=== PATIENT | female | born 1935 | race Hispanic/Latino ===

== ENCOUNTER 2019-08-28 13:14 | Inpatient (IN) | payer MEDICARE, MEDICAID, SELFPAY ==
[2019-08-31 13:44] VITALS: BMI 25.3
[2019-09-01] VITALS (17 sets, daily range): BP systolic 121–140; BP diastolic 55–81; PULSE 69–88; RESP 16–30; TEMP 36.4–36.8; O2SAT 92–100
[2019-09-01 04:56] LABS: Hematocrit 24.3 % (37.0-47.0); Hemoglobin 8.1 g/dL (12.0-15.0); Mean Corpuscular HGB Conc 33.3 g/dl (32-36); Mean Platelet Volume 11.9 fl (7.4-10.4); Platelet Count Result 155 k/mm3 (150-375); Red Blood Count 2.53 M/mm3 (4.2-5.4); Red Cell Distribution Width 13.1 % (11.5-14.5)
[2019-09-01] MEDS: ACETAMINOPHEN 325 MG TABLET 650 MG PO ×2 (08:20→19:37)
[2019-09-01] MEDS: ATORVASTATIN 20 MG TABLET PO (08:21)
[2019-09-01] MEDS: ASPIRIN 325 MG TABLET PO (08:21)
[2019-09-01] MEDS: PANTOPRAZOLE SODIUM IV 40 MG VIAL IV PUSH ×2 (08:22→20:43)
[2019-09-01] MEDS: INSULIN GLARGINE (*BKC) 100 UNITS/ML 15 UNITS SUB-Q (08:22)
[2019-09-01 08:30] LABS: Glucose Point of Care 129 (65-105)
--- NOTE | 2019-09-01 09:33 | PM.IMPN ---
Progress Note: A&P Assessment and Plan (1) Septic shock: Code(s): A41.9 - Sepsis, unspecified organism; R65.21 - Severe sepsis with septic shock Status: Acute Assessment and Plan: Patient with septic shock present on admission. Source most likely from UTI - no other clear etiology. Urine culture growing Enterobacter. Blood cultures showing no growth. Levophed has been weaned off. Blood pressure remaining stable. (2) Non-ST elevation [place] (NSTEMI): Code(s): I21.4 - Non-ST elevation (NSTEMI) myocardial infarction Status: Acute Assessment and Plan: Troponin has peaked at 28.7. Patient without complaints of chest pain. Echo showing EF of 60% and grade 2 diastolic dysfunction but no wall motion abnormalities. EKG showing ST-T wave changes in the lateral leads but improved from EKG on admission. Heparin drip stopped. Continue medical management with Plavix, aspirin and Lipitor. Appreciate cardiology input. Regarding the patient's shortness of breath, it is felt this is related to anxiety and not anginal equivalent. EKG performed during 1 of these events did not show any significant changes. Would continue to redirect patient and minimize lorazepam use for the patient's anxiety. (3) UTI (urinary tract infection), bacterial: Code(s): N39.0 - Urinary tract infection, site not specified; A49.9 - Bacterial infection, unspecified Status: Acute Assessment and Plan: Most likely etiology of her septic shock. Urine culture growing Enterobacter that is relatively pansensitive. No fevers. White count remaining normal. Continue Rocephin. (4) CAD (coronary artery disease): Code(s): I25.10 - Atherosclerotic heart disease of [place] coronary artery without angina pectoris Status: Acute Assessment and Plan: As above. Patient has a history of coronary disease with myocardial infarction requiring angioplasty and possible stent in the past. (5) Diabetes mellitus: Code(s): E11.9 - Type 2 diabetes mellitus without complications Status: Acute Assessment and Plan: A1c 7.6. Glucose reviewed on 09/01/19. Glucose stable. Continue to hold Lantus. Continue sliding scale protocol. (6) Anemia: Code(s): D64.9 - Anemia, unspecified Status: Acute Assessment and Plan: Hemoglobin low but stable in the 7-8 range. No obvious source of blood loss. Iron studies noted. Continue to monitor. (7) Anxiety: Code(s): F41.9 - Anxiety disorder, unspecified Status: Acute Assessment and Plan: Suspect patient with anxiety resulting in her SOB. Continue to redirect. Ativan available as needed. (8) Right shoulder pain: Code(s): M25.511 - Pain in right shoulder Status: Acute Assessment and Plan: No trauma or falls. No right upper quadrant pain to suggest referred pain from gallbladder. Imaging study showing no fracture. Continue to follow. Additional Plan Continue PT and OT. Increase activity level. Time Spent With Patient Time: Total time spent is greater than 50% in coordination of care (as documented) at patient's floor/unit and/or counseling patient: Time with patient: 25 - 35 minutes Subjective Interval history: 83yo female here for septic shock and NSTEMI. Patient still with right shoulder pain but can not tell me if it is better or worse since Rt IJ central line removed. Eating okay. No n/v. UOP 250ml per RN. No issues overnight per RN. Patient also denies any problems overnight. Feels SOB and panicky. Slept well last night. No CP. Does complain of bilateral hand numbness. Exam Narrative: Exam Narrative: Gen - NARD Chest - CTA bilat, nml RR CV - RRR S1/S2; Tele showing PVCs. Abd - soft, NT/ND, +BS Ext - no pedal edema Psych - mildly anxious but easily redirected. Skin - warm and dry Objective Data Vital Signs Vital Signs: Vital Signs - 24 hr 09/01/19 00:19 09/01/19 00:37 11
[2019-09-01 12:15] LABS: Glucose Point of Care 115 (65-105)
[2019-09-01 16:19] LABS: Glucose Point of Care 200 (65-105)
--- NOTE | 2019-09-01 18:05 | PM.PNCARD ---
Progress Note: A&P Assessment and Plan (1) Non-ST elevation [place] (NSTEMI): Code(s): I21.4 - Non-ST elevation (NSTEMI) myocardial infarction Status: Acute Assessment and Plan: Will repeat an EKG tomorrow. Significant anterolateral ST segment depressions however. Given the severity of her non-STEMI, it is reasonable to pursue coronary angiogram to define her coronary anatomy. Possibly Wednesday (2) UTI (urinary tract infection), bacterial: Code(s): N39.0 - Urinary tract infection, site not specified; A49.9 - Bacterial infection, unspecified Status: Acute Assessment and Plan: On antibiotics (3) CAD (coronary artery disease): Code(s): I25.10 - Atherosclerotic heart disease of [place] coronary artery without angina pectoris Status: Acute Assessment and Plan: Continue aspirin, Plavix, statin. Discontinue Levophed. Start low-dose metoprolol 12.5 milligrams p.o. b.i.d.. (4) Diabetes mellitus: Code(s): E11.9 - Type 2 diabetes mellitus without complications Status: Acute Time Spent With Patient Time: Total time spent is greater than 50% in coordination of care (as documented) at patient's floor/unit and/or counseling patient: Time with patient: 15 - 25 minutes Subjective Interval history: Reason for follow-up: Non-STEMI Subjective: She denies any chest pain or shortness of breath. she feels better. No swelling Review of Systems Review of Systems: All systems reviewed & are unremarkable except as noted in HPI and below Constitutional: Constitutional: Denies fatigue Eyes: Eyes: Denies blurry vision ENT: Denies tinnitus Cardiovascular: Cardiovascular: Denies chest pain at rest Respiratory: Respiratory: Denies cough Gastrointestinal: Gastrointestinal: Denies hematochezia Genitourinary: Genitourinary: Denies frequent urination Musculoskeletal: Musculoskeletal: Denies muscle weakness Integumentary/Breasts: Skin/Breast: Denies rash Neurologic: Denies syncope Psychiatric: Psychiatric: Denies depression Endocrine: Endocrine: Denies fatigue Hematologic/Lymphatic: Hematologic/Lymphatic: Denies lymphadenopathy Allergic/Immunologic: Allergic/Immunologic: Denies lip swelling Exam Const: General: no acute distress HENMT: General nose exam: nares normal Eyes: General: appearance normal, both eyes and all related structures Neck: Neck: supple Resp: Auscultation: clear to auscultation bilaterally Cardio: Rate: regular rate Rhythm: regular rhythm GI: Palpation (GI): Yes soft Skin: General skin exam: normal color Neuro: Speech: normal speech Extrem: General: no pedal edema Psych: Affect: normal affect Objective Data Vital Signs Vital Signs: Vital Signs - 24 hr 09/01/19 00:19 09/01/19 00:37 09/01/19 02:00 Temperature Pulse Rate 82 79 77 Respiratory Rate 16 19 Blood Pressure 121/55 L 121/55 L Pulse Oximetry 100 98 92 L 09/01/19 04:00 09/01/19 06:00 09/01/19 08:00 Temperature 36.8 C Pulse Rate 76 77 74 Respiratory Rate 17 23 H 29 H Blood Pressure 128/64 136/64 Pulse Oximetry 96 98 94 L 09/01/19 08:30 09/01/19 10:00 09/01/19 10:06 Temperature 36.8 C Pulse Rate 76 73 77 Respiratory Rate 28 H 30 H Blood Pressure 140/66 140/66 Pulse Oximetry 93 L 97 09/01/19 12:00 09/01/19 14:00 09/01/19 16:00 Temperature Pulse Rate 78 72 81 Respiratory Rate 26 H 26 H Blood Pressure 125/81 Pulse Oximetry 97 100 09/01/19 16:42 Temperature 36.4 C Pulse Rate 73 Respiratory Rate 24 H Blood Pressure 135/57 L Pulse Oximetry 100 Intake/Output Intake/Output: Intake & Output 08/29/19 08/30/19 08/31/19 09/01/19 23:59 23:59 23:59 23:59 Intake Total 440 Output Total 450 Balance -10 Meds/Results Medications: Active Medications Generic Name Dose Route Start Last Admin Trade Name Freq PRN Reason Stop Dose Admin Acetaminophen 650 mg 09/01/19 00:00 09/01/19 08:20 Tylenol Tab
[2019-09-01] MEDS: METOPROLOL TARTRATE 12.5 MG TABLET PO (20:43)
[2019-09-01 21:18] LABS: Glucose Point of Care 132 (65-105)
[2019-09-02] VITALS (14 sets, daily range): BP systolic 112–122; BP diastolic 41–60; PULSE 65–86; RESP 17–27; TEMP 36.8–37.1; O2SAT 93–100
[2019-09-02] MEDS: LORAZEPAM 0.5 MG TABLET PO ×2 (04:23→22:52)
[2019-09-02 04:27] LABS: Hematocrit 25.7 % (37.0-47.0); Hemoglobin 8.4 g/dL (12.0-15.0); Mean Corpuscular HGB Conc 32.7 g/dl (32-36); Mean Corpuscular Hemoglobin 31.7 pg (26-34); Mean Platelet Volume 11.5 fl (7.4-10.4); Platelet Count Result 182 k/mm3 (150-375); Red Blood Count 2.65 M/mm3 (4.2-5.4); White Blood Count 7.8 K/mm3 (4.5-10.0)
[2019-09-02 04:43] LABS: Blood Urea Nitrogen 12 mg/dL (7-17); Calcium 8.1 mg/dL (8.4-10.2); Carbon Dioxide 25 mmol/L (22-30); Chloride 104 mmol/L (98-107); Estimated CRCL calculation 49 ml/min; Estimated Glomerular Filt Rate > 60; Glucose 135 mg/dL (65-105); Magnesium 2.1 mg/dL (1.6-2.3); Potassium 3.9 mmol/L (3.4-5.0); Sodium 135 mmol/L (137-145)
--- NOTE | 2019-09-02 08:11 | ECG_ITS ---
Measurements Intervals [address] Rate: 72 P: 43 NM: 147 QRS: -1 QRSD: 109 T: 68 QT: 413 QTc: 455 Interpretive Statements SINUS RHYTHM ST-T WAVE ABNORMALITY IN ANTEROLAT/LAT LEADS- CONSIDER ISCHEMIA ABNORMAL ECG Electronically Signed On 09-02-2019 9:51:03 CDT by Jhoan Camarillo D.O.
--- NOTE | 2019-09-02 09:26 | PM.PNCARD ---
Progress Note: A&P Assessment and Plan (1) Non-ST elevation [place] (NSTEMI): Code(s): I21.4 - Non-ST elevation (NSTEMI) myocardial infarction Status: Acute Assessment and Plan: EKG today still shows Significant anterolateral ST segment depressions however. Given the severity of her non-STEMI, it is reasonable to pursue coronary angiogram to define her coronary anatomy. Possibly Wednesday Will increase her metoprolol up to 25 milligrams p.o. b.i.d. (2) UTI (urinary tract infection), bacterial: Code(s): N39.0 - Urinary tract infection, site not specified; A49.9 - Bacterial infection, unspecified Status: Acute Assessment and Plan: On antibiotics (3) CAD (coronary artery disease): Code(s): I25.10 - Atherosclerotic heart disease of [place] coronary artery without angina pectoris Status: Acute Assessment and Plan: Continue aspirin, Plavix, statin, and metoprolol. (4) Diabetes mellitus: Code(s): E11.9 - Type 2 diabetes mellitus without complications Status: Acute Time Spent With Patient Time: Total time spent is greater than 50% in coordination of care (as documented) at patient's floor/unit and/or counseling patient: Time with patient: 15 - 25 minutes Subjective Interval history: Reason for follow-up: Non-STEMI Subjective: She denies any chest pain. She did have some episodic shortness of breath overnight. she feels better. No swelling Review of Systems Review of Systems: All systems reviewed & are unremarkable except as noted in HPI and below Constitutional: Constitutional: Denies fatigue Eyes: Eyes: Denies blurry vision ENT: Denies lip swelling and Denies tinnitus Cardiovascular: Cardiovascular: Denies chest pain at rest and Denies syncope Respiratory: Respiratory: Denies cough Gastrointestinal: Gastrointestinal: Denies hematochezia Genitourinary: Genitourinary: Denies frequent urination Musculoskeletal: Musculoskeletal: Denies muscle weakness Integumentary/Breasts: Skin/Breast: Denies rash Neurologic: Denies syncope Psychiatric: Psychiatric: Denies depression Endocrine: Endocrine: Denies fatigue Hematologic/Lymphatic: Hematologic/Lymphatic: Denies lymphadenopathy Allergic/Immunologic: Allergic/Immunologic: Denies lip swelling Exam Const: General: no acute distress HENMT: General nose exam: nares normal Eyes: General: appearance normal, both eyes and all related structures Neck: Neck: supple Resp: Auscultation: clear to auscultation bilaterally Cardio: Rate: regular rate Rhythm: regular rhythm GI: Palpation (GI): Yes soft Skin: General skin exam: normal color Neuro: Speech: normal speech Extrem: General: no pedal edema Psych: Affect: normal affect Objective Data Vital Signs Vital Signs: Vital Signs - 24 hr 09/01/19 10:00 09/01/19 10:06 09/01/19 12:00 Temperature Pulse Rate 73 77 78 Respiratory Rate 30 H 26 H Blood Pressure 140/66 125/81 Pulse Oximetry 97 97 09/01/19 14:00 09/01/19 16:00 09/01/19 16:42 Temperature 36.4 C Pulse Rate 72 81 73 Respiratory Rate 26 H 24 H Blood Pressure 135/57 L Pulse Oximetry 100 100 09/01/19 18:00 09/01/19 20:00 09/01/19 20:43 Temperature 36.8 C Pulse Rate 74 75 79 Respiratory Rate 25 H Blood Pressure 135/57 L Pulse Oximetry 98 09/01/19 22:00 09/02/19 00:00 09/02/19 02:00 Temperature 36.8 C Pulse Rate 70 71 71 Respiratory Rate 19 Blood Pressure 121/55 L Pulse Oximetry 98 09/02/19 04:00 09/02/19 06:00 09/02/19 08:00 Temperature 36.8 C Pulse Rate 86 77 67 Respiratory Rate 27 H Blood Pressure 122/60 Pulse Oximetry 98 Intake/Output Intake/Output: Intake & Output 08/30/19 08/31/19 09/01/19 09/02/19 23:59 23:59 23:59 23:59 Intake Total 440 350 Output Total 450 450 Balance -10 -100 Meds/Results Medications: Active Medications Generic Name Dose Route Start Last Admin Trade Name Freq
[2019-09-02 09:31] LABS: Glucose Point of Care 133 (65-105)
[2019-09-02] MEDS: PANTOPRAZOLE SODIUM IV 40 MG VIAL IV PUSH (09:39)
[2019-09-02] MEDS: ASPIRIN 325 MG TABLET PO (09:39)
[2019-09-02] MEDS: ATORVASTATIN 20 MG TABLET PO (09:40)
[2019-09-02] MEDS: INSULIN GLARGINE (*BKC) 100 UNITS/ML 15 UNITS SUB-Q (09:44)
--- NOTE | 2019-09-02 11:14 | PM.IMPN ---
Progress Note: A&P Assessment and Plan (1) Septic shock: Code(s): A41.9 - Sepsis, unspecified organism; R65.21 - Severe sepsis with septic shock Status: Acute Assessment and Plan: Patient with septic shock present on admission. Source most likely from UTI - no other clear etiology. Urine culture growing Enterobacter. Blood cultures showing no growth as on 08/29/19. Was on Levophed that was weaned off. Blood pressure remaining stable off Levophed. (2) Non-ST elevation [place] (NSTEMI): Code(s): I21.4 - Non-ST elevation (NSTEMI) myocardial infarction Status: Acute Assessment and Plan: Troponin has peaked at 28.7. Patient without complaints of chest pain. Echo showing EF of 60% and grade 2 diastolic dysfunction but no wall motion abnormalities. EKG showing ST-T wave changes in the lateral leads but improved from EKG on admission. Heparin drip stopped. Continue medical management with Plavix, aspirin and Lipitor. Low-dose beta-robert started as well. Blood pressure tolerating. Discussed with Cardiology. Appreciate cardiology input. Regarding the patient's shortness of breath, it is felt this is related to anxiety and not anginal equivalent. EKG performed during 1 of these events did not show any significant changes. Cardiology recommended starting Lovenox full dose. [facility] planned for Wednesday. (3) UTI (urinary tract infection), bacterial: Code(s): N39.0 - Urinary tract infection, site not specified; A49.9 - Bacterial infection, unspecified Status: Acute Assessment and Plan: Most likely etiology of her septic shock. Urine culture growing Enterobacter that is relatively pansensitive. No fevers. White count remaining normal. Continue Rocephin (day 6 of antibiotics). (4) CAD (coronary artery disease): Code(s): I25.10 - Atherosclerotic heart disease of [place] coronary artery without angina pectoris Status: Acute Assessment and Plan: As above. Patient has a history of coronary disease with myocardial infarction requiring angioplasty and possible stent in the past. (5) Diabetes mellitus: Code(s): E11.9 - Type 2 diabetes mellitus without complications Status: Acute Assessment and Plan: A1c 7.6. Glucose reviewed on 09/02/19. Glucose stable. Continue Lantus. Continue sliding scale protocol. (6) Anemia: Code(s): D64.9 - Anemia, unspecified Status: Acute Assessment and Plan: Hemoglobin low but stable in the 7-8 range. No obvious source of blood loss. Iron studies noted - possibly iron deficiency and suppressed TIBC production. Continue to monitor. Add iron. Check soluble transferrin (7) Anxiety: Code(s): F41.9 - Anxiety disorder, unspecified Status: Acute Assessment and Plan: Suspect patient with anxiety resulting in her SOB. Continue to redirect. Ativan available as needed. Discussed risks/beneftits of Lexapro and patient agreeable. Will add. (8) Right shoulder pain: Code(s): M25.511 - Pain in right shoulder Status: Acute Assessment and Plan: No trauma or falls. No right upper quadrant pain to suggest referred pain from gallbladder. Imaging study showing no fracture. Pain better since central line out and patient able to get out of bed. Continue to follow. Additional Plan Continue PT and OT. Increase activity level. Time Spent With Patient Time with patient: 25 - 35 minutes Subjective Interval history: 83yo female here for septic shock and NSTEMI. Patient was up to the chair for about 3 hours yesterday. Right shoulder pain is much improved. She had episode of shortness of breath again last night treated with Ativan. Symptoms resolved and she was able to sleep. No chest pain. Patient eating normally. Exam Narrative: Exam Narrative: Gen - NARD lying almost flat in bed Chest - CTA bilat, nml RR CV - RRR S1/S2; Tele showing PVCs and trigeminy Abd - soft, NT/ND, +BS
[2019-09-02 12:19] LABS: Glucose Point of Care 207 (65-105)
[2019-09-02] MEDS: METOPROLOL TARTRATE 25 MG TABLET PO ×2 (13:41→20:07)
[2019-09-02] MEDS: ENOXAPARIN 60 MG/0.6 ML SYRINGE 55 MG SUB-Q (13:44)
[2019-09-02] MEDS: INSULIN ASPART (*BKC) 100 UNITS/ML SUB-Q (13:45)
[2019-09-02] MEDS: ESCITALOPRAM OXALATE 5 MG TABLET PO (14:12)
--- NOTE | 2019-09-02 16:01 | PCOTNOTE ---
The patient treatment was able to be completed on [09/02/2019]. Will plan to continue treatment per plan of care.
[2019-09-02 17:51] LABS: Glucose Point of Care 130 (65-105)
[2019-09-02] MEDS: PANTOPRAZOLE 40 MG TABLET PO (20:07)
[2019-09-02 20:53] LABS: Glucose Point of Care 122 (65-105)
[2019-09-02] MEDS: ACETAMINOPHEN 325 MG TABLET 650 MG PO (22:51)
[2019-09-03] VITALS (16 sets, daily range): BP systolic 106–131; BP diastolic 49–65; PULSE 62–85; RESP 17–24; TEMP 36.6–37.1; O2SAT 91–99
--- NOTE | 2019-09-03 01:02 | PC.NURSE ---
Daylight Savings Time For Daylight Savings Time Ending in the Fall - Clocks are moved back. For Daylight Savings Time Beginning in the Spring - Clocks are moved ahead. For [facility], the time of change occurs at 0200 hrs. Time is taken from the windows server specialist. This entry on the patient's chart recognizes the change in time reflected during documentation. Example: 2 entries for vital signs may be charted for 0200 hrs.
[2019-09-03] MEDS: ENOXAPARIN 60 MG/0.6 ML SYRINGE 55 MG SUB-Q ×2 (03:03→14:05)
[2019-09-03 04:42] LABS: Hematocrit 25.2 % (37.0-47.0); Hemoglobin 8.3 g/dL (12.0-15.0); Mean Corpuscular HGB Conc 32.9 g/dl (32-36); Mean Corpuscular Hemoglobin 32.2 pg (26-34); Mean Corpuscular Volume 97.7 fl (80-100); Mean Platelet Volume 11.4 fl (7.4-10.4); Platelet Count Result 220 k/mm3 (150-375); Red Blood Count 2.58 M/mm3 (4.2-5.4)
[2019-09-03 04:57] LABS: Alanine Aminotransferase 16 U/L (4-35); Albumin Level 2.9 g/dL (3.5-5.1); Alkaline Phosphatase 65 U/L (38-126); Aspartate Amino Transferase 27 U/L (14-36); Bilirubin,Total 0.3 mg/dL (0.2-1.3); Blood Urea Nitrogen 10 mg/dL (7-17); Calcium 8.1 mg/dL (8.4-10.2); Carbon Dioxide 25 mmol/L (22-30); Chloride 102 mmol/L (98-107); Estimated CRCL calculation 38 ml/min; Estimated Glomerular Filt Rate > 60; Glucose 105 mg/dL (65-105); Potassium 3.9 mmol/L (3.4-5.0); Sodium 135 mmol/L (137-145)
[2019-09-03 04:58] LABS: Magnesium 2.1 mg/dL (1.6-2.3)
[2019-09-03] MEDS: INSULIN GLARGINE (*BKC) 100 UNITS/ML 15 UNITS SUB-Q (08:28)
[2019-09-03] MEDS: METOPROLOL TARTRATE 25 MG TABLET PO ×2 (08:30→20:06)
[2019-09-03] MEDS: PANTOPRAZOLE 40 MG TABLET PO ×2 (08:31→20:07)
[2019-09-03] MEDS: ESCITALOPRAM OXALATE 5 MG TABLET PO (08:31)
[2019-09-03 09:05] LABS: Glucose Point of Care 105 (65-105)
--- NOTE | 2019-09-03 09:05 | PM.PNCARD ---
Progress Note: A&P Assessment and Plan (1) Non-ST elevation [place] (NSTEMI): Code(s): I21.4 - Non-ST elevation (NSTEMI) myocardial infarction Status: Acute Assessment and Plan: EKG still shows Significant anterolateral ST segment depressions however. Given the severity of her non-STEMI, it is reasonable to pursue coronary angiogram to define her coronary anatomy. Possibly Wednesday DC enoxaparin after this PM dose in preparation for possible cath tomorrow NPO after midnight (2) UTI (urinary tract infection), bacterial: Code(s): N39.0 - Urinary tract infection, site not specified; A49.9 - Bacterial infection, unspecified Status: Acute Assessment and Plan: On antibiotics (3) CAD (coronary artery disease): Code(s): I25.10 - Atherosclerotic heart disease of [place] coronary artery without angina pectoris Status: Acute Assessment and Plan: Continue aspirin, Plavix, statin, and metoprolol. (4) Diabetes mellitus: Code(s): E11.9 - Type 2 diabetes mellitus without complications Status: Acute Subjective Interval history: Reason for follow-up: Non-STEMI Subjective: follow-up note 09/03/19: She denies any chest pain. she feels better. No swelling Review of Systems Review of Systems: All systems reviewed & are unremarkable except as noted in HPI and below Constitutional: Constitutional: Denies fatigue Eyes: Eyes: Denies blurry vision ENT: Denies lip swelling and Denies tinnitus Cardiovascular: Cardiovascular: Denies chest pain at rest and Denies syncope Respiratory: Respiratory: Denies cough Gastrointestinal: Gastrointestinal: Denies hematochezia Genitourinary: Genitourinary: Denies frequent urination Musculoskeletal: Musculoskeletal: Denies muscle weakness Integumentary/Breasts: Skin/Breast: Denies rash Neurologic: Denies syncope Psychiatric: Psychiatric: Denies depression Endocrine: Endocrine: Denies fatigue Hematologic/Lymphatic: Hematologic/Lymphatic: Denies lymphadenopathy Allergic/Immunologic: Allergic/Immunologic: Denies lip swelling Exam Const: General: no acute distress HENMT: General nose exam: nares normal Eyes: General: appearance normal, both eyes and all related structures Neck: Neck: supple Resp: Auscultation: clear to auscultation bilaterally Cardio: Rate: regular rate Rhythm: regular rhythm GI: Palpation (GI): Yes soft Skin: General skin exam: normal color Neuro: Speech: normal speech Extrem: General: no pedal edema Psych: Affect: normal affect Objective Data Vital Signs Vital Signs: Vital Signs - 24 hr 09/02/19 12:00 09/02/19 13:41 09/02/19 14:00 Temperature 37.0 C Pulse Rate 74 72 74 Respiratory Rate 17 Blood Pressure 117/60 Pulse Oximetry 93 L 09/02/19 16:00 09/02/19 18:00 09/02/19 20:00 Temperature 37.1 C 36.9 C Pulse Rate 67 74 73 Respiratory Rate 23 H 24 H Blood Pressure 118/55 L 121/55 L Pulse Oximetry 100 98 09/02/19 20:07 09/02/19 22:00 09/03/19 00:00 Temperature 36.6 C Pulse Rate 68 65 70 Respiratory Rate 22 H Blood Pressure 109/54 L Pulse Oximetry 99 09/03/19 02:00 09/03/19 04:00 09/03/19 06:00 Temperature 36.8 C Pulse Rate 69 85 69 Respiratory Rate 21 H Blood Pressure 123/65 Pulse Oximetry 92 L 09/03/19 08:00 09/03/19 08:17 09/03/19 08:30 Temperature 36.8 C Pulse Rate 77 74 Respiratory Rate 24 H Blood Pressure 131/60 Pulse Oximetry 91 L 92 L Intake/Output Intake/Output: Intake & Output 08/31/19 09/01/19 09/02/19 09/03/19 23:59 23:59 23:59 22:59 Intake Total 440 1090 Output Total 450 1100 150 Balance -10 -10 -150 Meds/Results Medications: Active Medications Generic Name Dose Route Start Last Admin Trade Name Freq PRN Reason Stop Dose Admin Acetaminophen 650 mg 09/01/19 00:00 09/02/19 22:51 Tylenol Tablet PO 650 mg Q4H PRN Administration Mild Pain (1-3) or Fever Aspirin
[2019-09-03 11:59] LABS: Glucose Point of Care 143 (65-105)
[2019-09-03] MEDS: ASPIRIN 325 MG TABLET PO (14:04)
[2019-09-03] MEDS: ATORVASTATIN 20 MG TABLET PO (14:04)
--- NOTE | 2019-09-03 15:34 | PM.IMPN ---
Progress Note: A&P Assessment and Plan (1) Septic shock: Code(s): A41.9 - Sepsis, unspecified organism; R65.21 - Severe sepsis with septic shock Status: Acute Assessment and Plan: Patient with septic shock present on admission. Source most likely from UTI - no other clear etiology. Urine culture growing Enterobacter. Blood cultures negative. Was on Levophed that was weaned off. Blood pressure remaining stable off Levophed. (2) Non-ST elevation [place] (NSTEMI): Code(s): I21.4 - Non-ST elevation (NSTEMI) myocardial infarction Status: Acute Assessment and Plan: Troponin has peaked at 28.7. Patient without complaints of chest pain. Echo showing EF of 60% and grade 2 diastolic dysfunction but no wall motion abnormalities. EKG showing ST-T wave changes in the lateral leads but improved from EKG on admission. Heparin drip stopped and changed to full dose Lovenox. Continue medical management with Plavix, aspirin and Lipitor. Low-dose beta-robert started as well and blood pressure tolerating. Regarding the patient's shortness of breath, it is felt this is related to anxiety and not anginal equivalent. EKG performed during 1 of these events did not show any significant changes. [facility] planned for tomorrow. Lovenox on hold. Patient NPO after midnight. Appreciate cardiology input. (3) UTI (urinary tract infection), bacterial: Code(s): N39.0 - Urinary tract infection, site not specified; A49.9 - Bacterial infection, unspecified Status: Acute Assessment and Plan: Most likely etiology of her septic shock. Urine culture growing Enterobacter that is relatively pansensitive. No fevers. White count remaining normal. Continue Rocephin (day 7 of antibiotics). Switch to oral antibiotics. (4) CAD (coronary artery disease): Code(s): I25.10 - Atherosclerotic heart disease of [place] coronary artery without angina pectoris Status: Acute Assessment and Plan: As above. Patient has a history of coronary disease with myocardial infarction requiring angioplasty and stent(?) in the past. Continue medical management. Appreciate Cardiology input. (5) Diabetes mellitus: Code(s): E11.9 - Type 2 diabetes mellitus without complications Status: Acute Assessment and Plan: A1c 7.6. Glucose reviewed on 09/03/19. Glucose well controlled. Hold Lantus while NPO. Continue sliding scale protocol. (6) Anemia: Code(s): D64.9 - Anemia, unspecified Status: Acute Assessment and Plan: Hemoglobin low but stable in the 7-8 range. No obvious source of blood loss. Iron studies noted - possibly iron deficiency and suppressed TIBC production. Continue to monitor. Add iron. Continue Protonix to cover for stress gastritis. (7) Anxiety: Code(s): F41.9 - Anxiety disorder, unspecified Status: Acute Assessment and Plan: Suspect patient with anxiety resulting in her SOB. Continue to redirect. Ativan available as needed. Lexapro added. Symptoms appear to have improved. Continue to monitor. (8) Right shoulder pain: Code(s): M25.511 - Pain in right shoulder Status: Acute Assessment and Plan: No trauma or falls. No right upper quadrant pain to suggest referred pain from gallbladder. Imaging studies showing no fracture. Pain improved once the central line was out and patient able to get out of bed. Continue to follow. Additional Plan Continue PT and OT. Increase activity level. Time Spent With Patient Time with patient: 25 - 35 minutes Subjective Interval history: 83yo female here for septic shock and NSTEMI. No problems overnight. Patient has been weaned off oxygen. The anxiety symptoms are better overnight. She still has episodes of shortness of breath. Eating normally. No chest pain or abdominal pain. Walking to the bathroom. Was sitting up in a chair earlier. Denies having any further shoulder pain. Exam Narrati
[2019-09-03 17:36] LABS: Glucose Point of Care 116 (65-105)
--- NOTE | 2019-09-03 17:42 | PCOTNOTE ---
The patient treatment was unable to be completed on [09/03/2019]. Will plan to continue treatment per plan of care.
[2019-09-03] MEDS: FERROUS SULFATE 324 MG TABLET PO (20:07)
[2019-09-04] VITALS (35 sets, daily range): BP systolic 83–157; BP diastolic 47–70; PULSE 55–82; RESP 16–24; TEMP 36.1–36.9; O2SAT 91–100
[2019-09-04] MEDS: LORAZEPAM 0.5 MG TABLET PO ×2 (04:40→21:34)
[2019-09-04 08:14] LABS: Glucose Point of Care 107 (65-105)
[2019-09-04] MEDS: FERROUS SULFATE 324 MG TABLET PO (09:06)
[2019-09-04] MEDS: CEFDINIR 300 MG CAPSULE PO ×2 (09:07→21:34)
[2019-09-04] MEDS: ATORVASTATIN 20 MG TABLET PO (09:07)
[2019-09-04] MEDS: ESCITALOPRAM OXALATE 5 MG TABLET PO (09:07)
[2019-09-04] MEDS: ASPIRIN 325 MG TABLET PO (09:07)
[2019-09-04] MEDS: PANTOPRAZOLE 40 MG TABLET PO ×2 (09:08→21:34)
[2019-09-04] MEDS: METOPROLOL TARTRATE 25 MG TABLET PO ×2 (09:11→21:34)
--- NOTE | 2019-09-04 10:44 | WPDMODSED ---
Patient Data Diagnosis: Non ST-elevation [place] Present Complaint: No complaints today Procedure to be performed/Plan: Left heart catheterization, possible PCI Allergies Allergy/AdvReac Type Severity Reaction Status Date / Time No Known Allergies Allergy Unknown Verified 08/28/19 15:52 Home Medications Medication Instructions Recorded Confirmed Type acarbose [Precose] 25 mg PO DAILY 08/31/19 08/31/19 History aspirin 81 mg PO DAILY 08/31/19 08/31/19 History benzonatate 100 mg PO DAILY PRN 08/31/19 08/31/19 History cholecalciferol (vitamin D3) 1,000 unit PO DAILY 08/31/19 08/31/19 History enalapril maleate 20 mg PO BID 08/31/19 08/31/19 History metformin 1,000 mg PO BID 08/31/19 08/31/19 History pravastatin 40 mg PO DAILY 08/31/19 08/31/19 History Current Medications: Active Medications Acetaminophen (Tylenol Tablet) 650 mg PO Q4H PRN PRN Reason: Mild Pain (1-3) or Fever Last Admin: 09/02/19 22:51 Dose: 650 mg Documented by: Aspirin (Aspirin) 325 mg PO DAILY@0800 [facility] Last Admin: 09/04/19 09:07 Dose: 325 mg Documented by: Atorvastatin Calcium (Lipitor) 20 mg PO DAILY [facility] Last Admin: 09/04/19 09:07 Dose: 20 mg Documented by: Cefdinir (Omnicef) 300 mg PO Q12HR [facility] Last Admin: 09/04/19 09:07 Dose: 300 mg Documented by: Clopidogrel [facility] ([facility]ix) [facility] Escitalopram Oxalate (Lexapro) 5 mg PO QAM [facility] Last Admin: 09/04/19 09:07 Dose: 5 mg Documented by: Ferrous Sulfate (Ferrous Sulfate) 324 mg PO BIDWM [facility] Last Admin: 09/04/19 09:06 Dose: 324 mg Documented by: Insulin Aspart (Novolog) 3 - 6 units SUB-Q TIDWM [facility]; Protocol Last Admin: 09/04/19 09:11 Dose: Not Given Documented by: Insulin Glargine (Lantus) 15 units SUB-Q DAILY [facility] Last Admin: 09/03/19 08:28 Dose: 15 units Documented by: Lorazepam (Ativan) 0.5 mg PO Q6H PRN PRN Reason: Anxiety Last Admin: 09/04/19 04:40 Dose: 0.5 mg Documented by: Metoprolol Tartrate (Lopressor) 25 mg PO Q12HR [facility] Last Admin: 09/04/19 09:11 Dose: 25 mg Documented by: Pantoprazole Sodium (Protonix) 40 mg PO Q12HR [facility] Last Admin: 09/04/19 09:08 Dose: 40 mg Documented by: Sedation/Anesthesia: No previous sedation/anesthesia problems (including family history). Physical Exam Pre Procedural Exam: Normal: Appearance, Throat, Airway, Lungs, Heart Size, Heart Rate, Heart Rhythm, Neuro Exam and Extremities Hours since solid foods: 12 Hours since liquid intake: 12 Internal Medicine - PN: Obj Da Vital Signs Vital Signs: Vital Signs - 24 hr 09/03/19 12:00 09/03/19 14:00 09/03/19 16:00 Temperature 37.1 C Pulse Rate 69 75 78 Respiratory Rate 22 H 20 Blood Pressure 110/65 Pulse Oximetry 94 L 93 L 09/03/19 18:00 09/03/19 20:00 09/03/19 20:06 Temperature Pulse Rate 74 75 73 Respiratory Rate Blood Pressure Pulse Oximetry 96 09/03/19 20:28 09/03/19 22:00 09/04/19 00:00 Temperature 36.8 C Pulse Rate 70 71 81 Respiratory Rate 17 20 Blood Pressure 106/49 L Pulse Oximetry 96 95 09/04/19 02:00 09/04/19 04:00 09/04/19 06:00 Temperature 36.7 C Pulse Rate 69 77 67 Respiratory Rate 20 Blood Pressure 124/65 Pulse Oximetry 91 L 09/04/19 08:27 Temperature 36.9 C Pulse Rate Respiratory Rate Blood Pressure Pulse Oximetry Intake/Output Intake/Output: Intake & Output 09/02/19 09/03/19 09/03/19 09/04/19 00:59 00:59 23:59 23:59 Intake Total 200 Output Total 300 Balance -100 Meds/Results Medications: Active Medications Generic Name Dose Route Start Last Admin Trade Name Freq PRN Reason Stop Dose Admin Acetaminophen 650 mg 09/01/19 00:00 09/02/19 22:51 Tylenol Tablet PO 650 mg Q4H PRN Administration Mild Pain (1-3) or Fever Aspirin 325 mg 09/01/19 08:00 09/04/19 09:07 Aspirin PO 325 mg DAILY@0800 AN[facility] Administration Atorvastatin Calcium 20 mg 09/01/19 09:00 09/04/19 09:07 Lipitor PO 20 mg DAILY ANNE MARIE Administ
--- NOTE | 2019-09-04 10:47 | PCDIET ---
Patient screened for length of stay. Presently NPO for possible cardiac cath. Previously eating ~75% of meals on diabetic diet. No recommendations at this time. Will re-evaluate in 7 days or sooner, if indicated.
[2019-09-04 12:29] LABS: Glucose Point of Care 100 (65-105)
--- NOTE | 2019-09-04 13:04 | PM.IMPN ---
Progress Note: A&P Assessment and Plan (1) Septic shock: Code(s): A41.9 - Sepsis, unspecified organism; R65.21 - Severe sepsis with septic shock Status: Acute Assessment and Plan: Resolved. Patient with septic shock present on admission. Source most likely from UTI - no other clear etiology. Urine culture growing Enterobacter. Blood cultures negative. Was on Levophed that was weaned off. Blood pressure remaining stable off Levophed. (2) Non-ST elevation [place] (NSTEMI): Code(s): I21.4 - Non-ST elevation (NSTEMI) myocardial infarction Status: Acute Assessment and Plan: Troponin has peaked at 28.7. Patient without complaints of chest pain. Echo showing EF of 60% and grade 2 diastolic dysfunction but no wall motion abnormalities. EKG showing ST-T wave changes in the lateral leads but improved from EKG on admission. Heparin drip stopped and changed to full dose Lovenox. Continue medical management with Plavix, aspirin and Lipitor. Low-dose beta-robert started as well and blood pressure tolerating. Regarding the patient's shortness of breath, it is felt this is related to anxiety and not anginal equivalent. EKG performed during 1 of these events did not show any significant changes. [facility] planned for tomorrow. Lovenox on hold. Patient NPO currently awaiting the [facility]. Appreciate cardiology input. (3) UTI (urinary tract infection), bacterial: Code(s): N39.0 - Urinary tract infection, site not specified; A49.9 - Bacterial infection, unspecified Status: Acute Assessment and Plan: Most likely etiology of her septic shock. Urine culture growing Enterobacter that is relatively pansensitive. No fevers. White count remaining normal. Continue Cefdinir (day 8/10 of antibiotics). (4) CAD (coronary artery disease): Code(s): I25.10 - Atherosclerotic heart disease of [place] coronary artery without angina pectoris Status: Acute Assessment and Plan: As above. Patient has a history of coronary disease with myocardial infarction requiring angioplasty and stent(?) in the past. Continue medical management. Appreciate Cardiology input. (5) Diabetes mellitus: Code(s): E11.9 - Type 2 diabetes mellitus without complications Status: Acute Assessment and Plan: A1c 7.6. Glucose reviewed on 09/04/19. Glucose well controlled. Lantus on hold while NPO. Continue sliding scale protocol. (6) Anemia: Code(s): D64.9 - Anemia, unspecified Status: Acute Assessment and Plan: Hemoglobin low but stable in the 7-8 range. No obvious source of blood loss. Iron studies noted - possibly iron deficiency and suppressed TIBC production. Continue to monitor. Continue iron. Continue Protonix to cover for stress gastritis. (7) Anxiety: Code(s): F41.9 - Anxiety disorder, unspecified Status: Acute Assessment and Plan: Suspect patient with anxiety resulting in her SOB. Continue to redirect. Ativan available as needed. Lexapro added. Symptoms appear to have improved. Continue to monitor. Home with Lexapro and Xanax. (8) Right shoulder pain: Code(s): M25.511 - Pain in right shoulder Status: Acute Assessment and Plan: No trauma or falls. No right upper quadrant pain to suggest referred pain from gallbladder. Imaging studies showing no fracture. Pain improved once the central line was out and patient able to get out of bed. Continue to follow. Additional Plan Continue PT and OT. Increase activity level. Subjective Interval history: 83yo female here for septic shock and NSTEMI. No issues overnight. Walking in the room. SOB overnight related to anxiety better with the lorazepam. Exam Narrative: Exam Narrative: Gen - NARD sitting up in a chair Chest - CTA bilat, nml RR CV - RRR S1/S2; Tele showing one episode of bigeminy Abd - soft, NT/ND, +BS Ext - no pedal edema Psych - normal mood and affect. Calm and
--- NOTE | 2019-09-04 13:57 | PCOTNOTE ---
Patient attempted to be seen this date for skilled OT, however, patient unavailable - getting catheter at this time. Will attempt to see patient later in PM, and continue POC tomorrow, 09/05/19.
--- NOTE | 2019-09-04 14:54 | P.PCNCC_ITS ---
Cardiac Cath Procedure Note Date of procedure:: 09/04/19 Performing physician:: Vasquez Singh MD Indication:: Non ST-elevation [place] in setting of septic shock Brief clinical history:: 83-year-old female with no previous known history of coronary artery disease presented last week with findings suggestive of septic shock. Following this there has been a significant rise in cardiac biomarkers and precordial ST segment depression. Procedure Procedure performed:: Left heart catheterization with coronary angiography and left ventriculography via left groin Sedation/Medication given:: 50 milligrams fentanyl 2 milligrams Versed Access site:: Left femoral artery accessed after right femoral access failed Estimated blood loss:: 50 cubic centimeters Procedure note:: Patient was brought to the cardiac catheterization lab in the postabsorptive state the right and left femoral triangles were prepped in the usual fashion. Anesthesia was given in the right groin with 1% lidocaine infiltrated locally. There was no palpable arterial pulse in the right femoral artery and attempts to puncture the femoral artery were unsuccessful. There was a thready pulse in the left femoral artery and this was punctured successfully after several attempts. Left heart catheterization was then carried out using a 5 [place] angled pigtail catheter to document left-sided hemodynamics and inject the left ventriculogram in the POLLACK projection. A JR4 catheter was used to inject the right coronary artery and an FL4 catheter to inject the left coronary artery. Patient was then taken to the holding area for manual sheath removal. Procedure was well tolerated there was no evidence of a groin hematoma upon the recyclable materials collector Findings:: Central aortic pressure is 124/45. Left ventricle 124/0 end-diastolic pressure 18 there is no significant gradient across the aortic valve upon pullback. Left ventricular dilation with severe global hypokinesia global ejection fraction 25%. Moderate to severe mitral regurgitation. Severely calcified coronary arteries Long left main with moderate distal 50% left main stenosis. LAD is diffusely diseased with 70 to 80% diffuse mid lesion and heavy calcification throughout. Major diagonal has proximal 95% stenosis. Circumflex is a severely diseased artery with 99% ostial stenosis with [place] 2 flow into the major OM branch which is moderate size Right coronary artery is moderate caliber and dominant to the posterior circulation. There is proximal 80% long RCA stenosis distal 90% stenosis in the 3rd portion and 95 to 99% stenosis in the RPL branch which is moderate size Conclusion:: Severe three-vessel coronary artery disease as detailed above Heavily calcified coronary arteries Severe left ventricular dysfunction with significant mitral regurgitation Revascularization strategy would have to include CABG as likely the patient's best option albeit not low risk Operation would likely include mitral valve repair as well
--- NOTE | 2019-09-04 15:20 | PC.NURSE ---
pt transferred via bed to labels molder at 2169
--- NOTE | 2019-09-04 16:20 | SUR.PHASEI ---
1515 pt arrived to the [facility], 5 fr sheath secured to left groin-drsg c/d/i, vss, denies pain, educational interpreter at bedside talking with pt during recovery. 1531 5fr sheath removed using manual pressure per protocol by Ellis PLATA. 1601 hemostasis acheived sterile applied, family at bedside, discussed bedrest and activity intructions with pt and family, cont to closely monitor.
[2019-09-04 17:17] LABS: Glucose Point of Care 78 (65-105)
[2019-09-05] VITALS (30 sets, daily range): BP systolic 107–140; BP diastolic 44–67; PULSE 58–95; RESP 13–22; TEMP 36.6–36.9; O2SAT 89–96
--- NOTE | 2019-09-05 08:29 | PM.IMPN ---
Progress Note: A&P Assessment and Plan (1) Septic shock: Code(s): A41.9 - Sepsis, unspecified organism; R65.21 - Severe sepsis with septic shock Status: Acute Assessment and Plan: Now resolved. Most likely result of UTI. Blood pressure reviewed on 09/05/19 and stable off pressors. Urine culture with Enterobacter. Blood cultures negative. Now remains on cefdinir. Plan for transfer to tertiary center due to severe 3 vessel coronary disease. Telemetry reviewed on 09/05/19 with sinus rhythm. (2) Non-ST elevation CT (NSTEMI): Code(s): I21.4 - Non-ST elevation (NSTEMI) myocardial infarction Status: Acute Assessment and Plan: Appreciate help from cardiology. Troponin peaked at 28.7. Echocardiogram with EF 60% and grade 2 diastolic dysfunction but no wall motion abnormalities. Now S/P cardiac cath on 09/04/19 revealing severe 3 vessel disease. Per cardiology, plan for transfer to tertiary center for CABG and possible mitral valve repair. Off anticoagulant. Continue metoprolol, Plavix and atorvastatin. (3) CAD (coronary artery disease): Code(s): I25.10 - Atherosclerotic heart disease of [place] coronary artery without angina pectoris Status: Acute Assessment and Plan: Now S/P cardiac cath as noted above. Plan as noted above. (4) UTI (urinary tract infection), bacterial: Code(s): N39.0 - Urinary tract infection, site not specified; A49.9 - Bacterial infection, unspecified Status: Acute Assessment and Plan: Most likely etiology of her septic shock. Urine culture growing Enterobacter. Now on Day # 9 of 10 cefdinir. Continue cefdinir to completion. (5) Diabetes mellitus: Code(s): E11.9 - Type 2 diabetes mellitus without complications Status: Acute Assessment and Plan: HgbA1C 7.6. Glucose reviewed on 09/05/19. Lantus on hold since 09/03/19. Remains well controlled. Will continue to monitor. Sliding scale insulin available as needed. (6) Anemia: Code(s): D64.9 - Anemia, unspecified Status: Acute Assessment and Plan: Last Hgb 8.3 on 09/03/19 and remains stable. Iron studies noted - possibly iron deficiency and suppressed TIBC production. No obvious bleeding. Continue iron and Protonix. Monitor periodically. (7) Anxiety: Code(s): F41.9 - Anxiety disorder, unspecified Status: Acute Assessment and Plan: May be adding to shortness of breath. Will continue Lexapro. Has lorazepam available as needed. Will monitor. (8) Right shoulder pain: Code(s): M25.511 - Pain in right shoulder Status: Acute Assessment and Plan: No complaint today. Imaging negative. Continue PT/OT. (9) DVT prophylaxis: Code(s): Z29.9 - Encounter for prophylactic measures, unspecified Status: Acute Assessment and Plan: Was on heparin drip/Lovenox but anticoagulation stopped with cardiac catheterization. Will not resume with need for transfer to tertiary center. PT/OT to help with ambulation. Subjective Interval history: Date of Service: 09/05/2019. Admitted for septic shock, NSTEMI. Awake. Family present and act as order dispatcher chief as patient only speaks [place]. Complains of shortness of breath. Denies chest pain. No headache. No abdominal pain. Review of Systems Constitutional: Constitutional: Denies fever(s) Cardiovascular: Cardiovascular: Denies chest pain and Denies palpitations Respiratory: Respiratory: Reports dyspnea Gastrointestinal: Gastrointestinal: Denies abdominal pain and Denies nausea Integumentary/Breasts: Skin/Breast: Denies rash Neurologic: Denies confusion and Denies headache(s) Psychiatric: Psychiatric: Denies confusion Exam Const: General: No no acute distress HENMT: Mouth: No moist mucous membranes Neck: Neck: supple Resp: Auscultation: clear to auscultation bilaterally and diminished lung sounds Cardio: Rate: regular rate Rhythm: regular rhythm GI: Palpation (GI): Yes soft and
[2019-09-05] MEDS: ASPIRIN 325 MG TABLET PO (09:06)
[2019-09-05] MEDS: FERROUS SULFATE 324 MG TABLET PO ×2 (09:06→18:39)
[2019-09-05] MEDS: ATORVASTATIN 20 MG TABLET PO (09:06)
[2019-09-05] MEDS: CEFDINIR 300 MG CAPSULE PO ×2 (09:06→20:30)
[2019-09-05] MEDS: METOPROLOL TARTRATE 25 MG TABLET PO ×2 (09:06→20:29)
[2019-09-05] MEDS: ESCITALOPRAM OXALATE 5 MG TABLET PO (09:06)
[2019-09-05] MEDS: PANTOPRAZOLE 40 MG TABLET PO ×2 (09:06→20:30)
[2019-09-05 09:13] LABS: Glucose Point of Care 105 (65-105)
[2019-09-05 09:44] LABS: Blood Urea Nitrogen 11 mg/dL (7-17); Calcium 8.6 mg/dL (8.4-10.2); Carbon Dioxide 21 mmol/L (22-30); Chloride 105 mmol/L (98-107); Estimated CRCL calculation 52 ml/min; Estimated Glomerular Filt Rate > 60; Glucose 109 mg/dL (65-105); Magnesium 1.9 mg/dL (1.6-2.3); Potassium 4.2 mmol/L (3.4-5.0); Sodium 135 mmol/L (137-145)
--- NOTE | 2019-09-05 12:40 | PM.PNCARD ---
Progress Note: A&P Assessment and Plan (1) Non-ST elevation [place] (NSTEMI): Code(s): I21.4 - Non-ST elevation (NSTEMI) myocardial infarction Status: Acute Assessment and Plan: Cardiac catheterization by Dr. Singh on September 04, 2019 revealed significant coronary artery disease, severe LV dysfunction and severe MR. Plan is to transfer to [facility] for further management. Surgical revascularization was recommended by Dr. Singh. Spoke with Dr. Mendes at 12:43 p.m. and he has accepted her for transfer. (2) UTI (urinary tract infection), bacterial: Code(s): N39.0 - Urinary tract infection, site not specified; A49.9 - Bacterial infection, unspecified Status: Acute Assessment and Plan: On antibiotics (3) CAD (coronary artery disease): Code(s): I25.10 - Atherosclerotic heart disease of [place] coronary artery without angina pectoris Status: Acute Assessment and Plan: Continue aspirin, statin, and metoprolol. Will stop clopidogrel on transfer in anticipation of bypass surgery. (4) Diabetes mellitus: Code(s): E11.9 - Type 2 diabetes mellitus without complications Status: Acute Assessment and Plan: Management per hospitalist team Time Spent With Patient Time: Plan discussed with Dr Randell Watson 09/05/2019 Time with patient: less than 15 minutes Subjective Interval history: Reason for follow-up: Non-STEMI. Multivessel coronary artery disease, LV dysfunction and severe MR found on cardiac catheterization September 04/2019. Subjective: follow-up note 09/05/19: Son at bedside. Denied chest discomfort or lightheadedness. Occasional episodes of shortness of breath. Review of Systems Review of Systems: All systems reviewed & are unremarkable except as noted in HPI and below Cardiovascular: Cardiovascular: Reports no additional cardiovascular complaints, Denies chest pain at rest and Denies syncope Respiratory: Respiratory: Reports dyspnea (With feelings of anxiety) and Reports dyspnea on exertion Gastrointestinal: Gastrointestinal: Reports no additional gastrointestinal complaints Musculoskeletal: Musculoskeletal: Reports no additional musculoskeletal complaints and Denies muscle weakness Neurologic: Denies syncope Psychiatric: Psychiatric: Reports anxiety Endocrine: Endocrine: Denies fatigue Hematologic/Lymphatic: Hematologic/Lymphatic: Denies lymphadenopathy Allergic/Immunologic: Allergic/Immunologic: Denies lip swelling Exam Const: General: comfortable and no acute distress HENMT: General nose exam: nares normal Eyes: General: appearance normal, both eyes and all related structures Neck: Neck: supple Resp: Auscultation: clear to auscultation bilaterally Cardio: Rate: regular rate Rhythm: regular rhythm GI: Palpation (GI): Yes soft and No tender Auscultation: normal bowel sounds Skin: General skin exam: normal color Neuro: Speech: normal speech Extrem: General: no pedal edema Other: Right groin site without swelling or bleeding. No femoral bruit. Distal pulses intact. Psych: Affect: normal affect Objective Data Vital Signs Vital Signs: Vital Signs - 24 hr 09/04/19 12:46 09/04/19 15:15 09/04/19 15:30 Temperature 36.6 C 36.1 C L Pulse Rate 66 71 55 L Respiratory Rate 17 16 16 Blood Pressure 104/62 120/53 L 157/70 H Pulse Oximetry 100 100 100 09/04/19 15:45 09/04/19 16:00 09/04/19 16:15 Temperature Pulse Rate 67 69 71 Respiratory Rate 23 H 21 H 18 Blood Pressure 120/59 L 134/53 L 134/62 Pulse Oximetry 100 100 99 09/04/19 16:30 09/04/19 16:45 09/04/19 17:05 Temperature Pulse Rate 68 72 76 Respiratory Rate 17 16 16 Blood Pressure 135/56 L 140/65 Pulse Oximetry 100 98 98 09/04/19 17:32 09/04/19 18:00 09/04/19 19:00 Temperature 36.2 C L Pulse Rate 74 72 76 Respiratory Rate 19 17 20 Blood Pressure 104/62 124/68 Pulse Oximetry 100 100 09/04/19 19:15 09/04/19 19:30 09/04
[2019-09-05 13:24] LABS: IFOB Positive Control Positive; Immunochemical Fecal Occult Bl Negative (N)
--- NOTE | 2019-09-05 14:02 | PM.TDS ---
Transfer Discharge Sum: Prov Provider Date of admission: 08/28/19 13:14 Primary care physician: VEE,ELÍAS Huerta Admitting clinician: Vinnie Duenas MD Consults: 08/28/19 13:17 Consult to Physician Routine Comment: Consulting Provider: Johann Dodson Reason for consultation: sepsis Has provider been notified: Yes 08/28/19 14:35 Consult to Physician Routine Comment: Consulting Provider: Susan Mejias Reason for consultation: nstemi/ trop over 5 Has provider been notified: Yes DS: Diagnosis Admitting Diagnosis Admitting Diagnosis: Sepsis, unspecified organism Discharge Diagnosis (1) Non-ST elevation [place] (NSTEMI): Code(s): I21.4 - Non-ST elevation (NSTEMI) myocardial infarction Status: Acute (2) CAD (coronary artery disease): Code(s): I25.10 - Atherosclerotic heart disease of [place] coronary artery without angina pectoris Status: Acute (3) Anemia: Code(s): D64.9 - Anemia, unspecified Status: Acute (4) Septic shock: Code(s): A41.9 - Sepsis, unspecified organism; R65.21 - Severe sepsis with septic shock Status: Acute (5) UTI (urinary tract infection), bacterial: Code(s): N39.0 - Urinary tract infection, site not specified; A49.9 - Bacterial infection, unspecified Status: Acute Transfer Discharge Sum: Med Medications Active and Home Medications: Home Medications acarbose [Precose] 25 mg PO DAILY 08/31/19 [History Confirmed 08/31/19] aspirin 81 mg PO DAILY 08/31/19 [History Confirmed 08/31/19] benzonatate 100 mg PO DAILY PRN 08/31/19 [History Confirmed 08/31/19] cholecalciferol (vitamin D3) 1,000 unit PO DAILY 08/31/19 [History Confirmed 08/31/19] enalapril maleate 20 mg PO BID 08/31/19 [History Confirmed 08/31/19] metformin 1,000 mg PO BID 08/31/19 [History Confirmed 08/31/19] pravastatin 40 mg PO DAILY 08/31/19 [History Confirmed 08/31/19] Active Medications Acetaminophen (Tylenol Tablet) 650 mg PO Q4H PRN PRN Reason: Mild Pain (1-3) or Fever Last Admin: 09/02/19 22:51 Dose: 650 mg Documented by: Aspirin (Aspirin) 325 mg PO DAILY@0800 [facility] Last Admin: 09/05/19 09:06 Dose: 325 mg Documented by: Atorvastatin Calcium (Lipitor) 20 mg PO DAILY [facility] Last Admin: 09/05/19 09:06 Dose: 20 mg Documented by: Cefdinir (Omnicef) 300 mg PO Q12HR [facility] Last Admin: 09/05/19 09:06 Dose: 300 mg Documented by: Clopidogrel Bisulfate (Plavix) 75 mg PO QAM [facility] Escitalopram Oxalate (Lexapro) 5 mg PO QAM [facility] Last Admin: 09/05/19 09:06 Dose: 5 mg Documented by: Ferrous Sulfate (Ferrous Sulfate) 324 mg PO BIDWM [facility] Last Admin: 09/05/19 09:06 Dose: 324 mg Documented by: Insulin Aspart (Novolog) 3 - 6 units SUB-Q TIDWM [facility]; Protocol Last Admin: 09/05/19 09:10 Dose: Not Given Documented by: Insulin Glargine (Lantus) 15 units SUB-Q DAILY [facility] Last Admin: 09/03/19 08:28 Dose: 15 units Documented by: Lorazepam (Ativan) 0.5 mg PO Q6H PRN PRN Reason: Anxiety Last Admin: 09/04/19 21:34 Dose: 0.5 mg Documented by: Metoprolol Tartrate (Lopressor) 25 mg PO Q12HR [facility] Last Admin: 09/05/19 09:06 Dose: 25 mg Documented by: Pantoprazole Sodium (Protonix) 40 mg PO Q12HR [facility] Last Admin: 09/05/19 09:06 Dose: 40 mg Documented by: Transfer Discharge Sum: Hosp Hospital Course Hospital course: Poly Higgins is a 83 year old female Time Spent with Patient Time attestation: Total time spent providing and/or coordinating transfer services: DS: Data Data Completed and Pending Labs on day of discharge: Labs from last 24 hours 09/05/19 09/05/19 09/05/19 12:48 09:24 09:09 Sodium 135 L Potassium 4.2 Chloride 105 Carbon Dioxide 21 L BUN 11 Creatinine 0.50 L Estim Creat Clear Calc 52 Estimated GFR > 60 Glucose 109 H POC Capillary Glucose 105 Calcium 8.6 Magnesium 1.9 Stl Occult Blood (IFOB) Negative 09/04/19 17:15 Sodium Potassium Chloride C
[2019-09-05 14:23] LABS: Glucose Point of Care 147 (65-105)
--- NOTE | 2019-09-05 15:35 | PM.TDS ---
Transfer Discharge Sum: Prov Provider Date of admission: 08/28/19 13:14 Primary care physician: VEE,ELÍAS Huerta Admitting clinician: Vinnie Duenas MD Consults: 08/28/19 13:17 Consult to Physician Routine Comment: Consulting Provider: Johann Dodson Reason for consultation: sepsis Has provider been notified: Yes 08/28/19 14:35 Consult to Physician Routine Comment: Consulting Provider: Susan Mejias Reason for consultation: nstemi/ trop over 5 Has provider been notified: Yes DS: Diagnosis Admitting Diagnosis Admitting Diagnosis: Sepsis, unspecified organism Discharge Diagnosis (1) Septic shock: Code(s): A41.9 - Sepsis, unspecified organism; R65.21 - Severe sepsis with septic shock Status: Acute (2) Non-ST elevation [place] (NSTEMI): Code(s): I21.4 - Non-ST elevation (NSTEMI) myocardial infarction Status: Acute (3) CAD (coronary artery disease): Code(s): I25.10 - Atherosclerotic heart disease of [place] coronary artery without angina pectoris Status: Acute (4) UTI (urinary tract infection), bacterial: Code(s): N39.0 - Urinary tract infection, site not specified; A49.9 - Bacterial infection, unspecified Status: Acute (5) Diabetes mellitus: Code(s): E11.9 - Type 2 diabetes mellitus without complications Status: Acute (6) Anemia: Code(s): D64.9 - Anemia, unspecified Status: Acute (7) Anxiety: Code(s): F41.9 - Anxiety disorder, unspecified Status: Acute (8) Right shoulder pain: Code(s): M25.511 - Pain in right shoulder Status: Acute Transfer Discharge Sum: Med Medications Active and Home Medications: Home Medications acarbose [Precose] 25 mg PO DAILY 08/31/19 [History Confirmed 08/31/19] aspirin 81 mg PO DAILY 08/31/19 [History Confirmed 08/31/19] benzonatate 100 mg PO DAILY PRN 08/31/19 [History Confirmed 08/31/19] cholecalciferol (vitamin D3) 1,000 unit PO DAILY 08/31/19 [History Confirmed 08/31/19] enalapril maleate 20 mg PO BID 08/31/19 [History Confirmed 08/31/19] metformin 1,000 mg PO BID 08/31/19 [History Confirmed 08/31/19] pravastatin 40 mg PO DAILY 08/31/19 [History Confirmed 08/31/19] Active Medications Acetaminophen (Tylenol Tablet) 650 mg PO Q4H PRN PRN Reason: Mild Pain (1-3) or Fever Last Admin: 09/02/19 22:51 Dose: 650 mg Documented by: Aspirin (Aspirin) 325 mg PO DAILY@0800 [facility] Last Admin: 09/05/19 09:06 Dose: 325 mg Documented by: Atorvastatin Calcium (Lipitor) 20 mg PO DAILY [facility] Last Admin: 09/05/19 09:06 Dose: 20 mg Documented by: Cefdinir (Omnicef) 300 mg PO Q12HR [facility] Last Admin: 09/05/19 09:06 Dose: 300 mg Documented by: Clopidogrel Bisulfate (Plavix) 75 mg PO QAM [facility] Escitalopram Oxalate (Lexapro) 5 mg PO QAM [facility] Last Admin: 09/05/19 09:06 Dose: 5 mg Documented by: Ferrous Sulfate (Ferrous Sulfate) 324 mg PO BIDWM [facility] Last Admin: 09/05/19 09:06 Dose: 324 mg Documented by: Insulin Aspart (Novolog) 3 - 6 units SUB-Q TIDWM [facility]; Protocol Last Admin: 09/05/19 14:23 Dose: Not Given Documented by: Insulin Glargine (Lantus) 15 units SUB-Q DAILY [facility] Last Admin: 09/03/19 08:28 Dose: 15 units Documented by: Lorazepam (Ativan) 0.5 mg PO Q6H PRN PRN Reason: Anxiety Last Admin: 09/04/19 21:34 Dose: 0.5 mg Documented by: Metoprolol Tartrate (Lopressor) 25 mg PO Q12HR [facility] Last Admin: 09/05/19 09:06 Dose: 25 mg Documented by: Pantoprazole Sodium (Protonix) 40 mg PO Q12HR [facility] Last Admin: 09/05/19 09:06 Dose: 40 mg Documented by: Transfer Discharge Sum: Hosp Hospital Course Hospital course: Date of Service of Transfer: September 06, 2019. Reason for Hospitalization: dysuria, fever, chills, and shaking Poly Higgins is a 83 year old female who initially presented to the emergency room with complaint of dysuria followed by fever, chills and shaking. Family provided information and she is Irish speaking. I
[2019-09-05 18:41] LABS: Glucose Point of Care 174 (65-105)
[2019-09-05 20:22] LABS: Glucose Point of Care 148 (65-105)
[2019-09-05] MEDS: ACETAMINOPHEN 325 MG TABLET 650 MG PO (20:29)
[2019-09-05] MEDS: LORAZEPAM 0.5 MG TABLET PO (22:31)
[2019-09-06] VITALS (8 sets, daily range): BP systolic 117–160; BP diastolic 51–89; PULSE 67–92; RESP 18–23; TEMP 36.3–37.2; O2SAT 94–100
--- NOTE | 2019-09-06 09:01 | PM.IMPN ---
Progress Note: A&P Assessment and Plan (1) Septic shock: Code(s): A41.9 - Sepsis, unspecified organism; R65.21 - Severe sepsis with septic shock Status: Acute Assessment and Plan: Now resolved. Most likely result of UTI. Blood pressure reviewed on 09/06/19. Blood pressure remains stable off pressors. Urine culture with Enterobacter. Blood cultures remain negative. Will continue cefdinir. Telemetry reviewed on 09/06/19 with sinus rhythm. [facility] been accepted to [facility] due to severe 3 vessel coronary disease. Await available bed at [facility] for transfer. Will continue to monitor. (2) Non-ST elevation [place] (NSTEMI): Code(s): I21.4 - Non-ST elevation (NSTEMI) myocardial infarction Status: Acute Assessment and Plan: Appreciate help from cardiology. Troponin peaked at 28.7. Echocardiogram with EF 60% and grade 2 diastolic dysfunction but no wall motion abnormalities. Now S/P cardiac cath on 09/04/19 revealing severe 3 vessel disease. Plan for transfer to tertiary center for CABG and probable mitral valve repair with severe MR found on cardiac cath. Off anticoagulant with anticipated impending procedure. Continue metoprolol, Plavix and atorvastatin. (3) CAD (coronary artery disease): Code(s): I25.10 - Atherosclerotic heart disease of [place] coronary artery without angina pectoris Status: Acute Assessment and Plan: Now S/P cardiac cath as noted above. Plan as noted above. (4) UTI (urinary tract infection), bacterial: Code(s): N39.0 - Urinary tract infection, site not specified; A49.9 - Bacterial infection, unspecified Status: Acute Assessment and Plan: Most likely etiology of her septic shock. Urine culture growing Enterobacter. Now on Day # 10 of 10 antibiotics and currently on cefdinir. Discontinue cefdinir after today. (5) Diabetes mellitus: Code(s): E11.9 - Type 2 diabetes mellitus without complications Status: Acute Assessment and Plan: HgbA1C 7.6. Glucose reviewed on 09/06/19. Lantus on hold since 09/03/19. Remains well controlled with no regular medication. Will continue to monitor. Sliding scale insulin available as needed. (6) Anemia: Code(s): D64.9 - Anemia, unspecified Status: Acute Assessment and Plan: Last Hgb 8.3 on 09/03/19 and remains stable. Iron studies noted - possibly iron deficiency and suppressed TIBC production. No obvious bleeding. Continue iron and Protonix. Monitor periodically. (7) Anxiety: Code(s): F41.9 - Anxiety disorder, unspecified Status: Acute Assessment and Plan: May be adding to shortness of breath. Stable at present time. Will continue Lexapro. Has lorazepam available as needed. Will monitor. (8) Right shoulder pain: Code(s): M25.511 - Pain in right shoulder Status: Acute Assessment and Plan: No further complaint. Imaging negative. Continue PT/OT. (9) DVT prophylaxis: Code(s): Z29.9 - Encounter for prophylactic measures, unspecified Status: Acute Assessment and Plan: Was on heparin drip/Lovenox but anticoagulation stopped with cardiac catheterization. Will not resume with need for transfer to tertiary center. PT/OT to help with ambulation. Time Spent With Patient Time with patient: 15 - 25 minutes Subjective Interval history: Date of Service: 09/06/2019. Admitted with septic shock, NSTEMI. Sitting in chair. Family present and acting as trailer sections assembler as patient only speak Icelandic. Still has shortness of breath. Also complains of cough with phlegm. No chest pain. No headache. No abdominal pain. Review of Systems Constitutional: Constitutional: Denies fever(s) Cardiovascular: Cardiovascular: Denies chest pain and Denies palpitations Respiratory: Respiratory: Reports cough and Reports dyspnea Gastrointestinal: Gastrointestinal: Denies abdominal pain, Denies nausea and Denies vomiting Genitourinary: Genitourinary: Reports no additional fema
[2019-09-06 09:59] LABS: Glucose Point of Care 161 (65-105)
[2019-09-06] MEDS: METOPROLOL TARTRATE 25 MG TABLET PO (10:21)
[2019-09-06] MEDS: CEFDINIR 300 MG CAPSULE PO (10:21)
[2019-09-06] MEDS: FERROUS SULFATE 324 MG TABLET PO (10:21)
[2019-09-06] MEDS: ATORVASTATIN 20 MG TABLET PO (10:21)
[2019-09-06] MEDS: ASPIRIN 325 MG TABLET PO (10:21)
[2019-09-06] MEDS: PANTOPRAZOLE 40 MG TABLET PO (10:22)
[2019-09-06 12:59] LABS: Glucose Point of Care 208 (65-105)
[2019-09-07 18:05] LABS: Soluble Transferrin Receptor 0.71 mg/L (0.76-1.76)
== END 2019-09-06 14:50 | disposition short-term general hospital (02) | DRG 871 ==
PROVIDERS: Internal Medicine; Specialist; Admitting Provider Family Medicine; Emergency Provider Family Medicine; PCP Registered Nurse; Visit Provider Hospitalist
PROC: 4A023N7 Measurement of Cardiac Sampling and Pressure, Left Heart, Percutaneous Approach (ICD-10-PCS; CPT 93452; principal; 2019-09-04 14:30)
DX: A41.9 Sepsis, unspecified organism (principal); R65.21 Severe sepsis with septic shock; I21.4 Non-ST elevation (NSTEMI) myocardial infarction; N39.0 Urinary tract infection, site not specified; I34.0 Nonrheumatic mitral (valve) insufficiency; I25.10 Atherosclerotic heart disease of native coronary artery without angina pectoris; E11.9 Type 2 diabetes mellitus without complications; I10 Essential (primary) hypertension; E78.5 Hyperlipidemia, unspecified; M25.511 Pain in right shoulder; F41.9 Anxiety disorder, unspecified; D50.9 Iron deficiency anemia, unspecified; Z98.61 Coronary angioplasty status; M19.90 Unspecified osteoarthritis, unspecified site; Z79.82 Long term (current) use of aspirin; I25.2 Old myocardial infarction
CPT/HCPCS: 36415; 36556; 36600; 51702; 70450; 71045; 72040; 73030; 74176; 76705; 80048; 80053; 80061; 81001; 82274; 82375; 82607; 82728; 82746; 82805; 82962; 83036; 83050; 83540; 83550; 83605; 83735; 83880; 84238; 84484; 85014; 85018; 85025; 85027; 85610; 85730; 87040; 87077; 87081; 87086; 87088; 87186; 93005; 93306; 93458; 96361; 96365; 96375; 97110; 97116; 97161; 97165; 97530; 97535; 99291; A9270; C1751; C1887; C1894; C9113; J0131; J0692; J0696; J1644; J1650; J1815; J1940; J2250; J2543; J3010; J3475; J7030; J7040

== ENCOUNTER 2020-08-13 11:41 | Outpatient (RCR) | payer MEDICAID, SELFPAY | END 2020-08-13 23:59 | disposition home or self-care (01) | LOC: ANHAUDIO 11:41 | PROVIDERS: PCP Registered Nurse; Visit Provider Registered Nurse | DX: Z46.1 Encounter for fitting and adjustment of hearing aid (principal) | CPT/HCPCS: 99199 ==

== ENCOUNTER 2020-08-22 14:02 | Emergency (ER) | payer MEDICARE, MEDICAID, SELFPAY ==
[2020-08-22 14:21] VITALS: BP 147/61; PULSE 76; RESP 18; TEMP 36.5; O2SAT 97
[2020-08-22 14:25] VITALS: BP 147/61; PULSE 76; RESP 18; TEMP 36.5; O2SAT 97
--- NOTE | 2020-08-22 14:51 | ED.EAR ---
HPI - Ear Problem General Chief complaint: Ear Stated complaint: Blood in Ear Time Seen by Provider: 08/22/20 14:43 Source: patient and RN notes reviewed Mode of arrival: ambulatory History of Present Illness HPI Narrative: Patient presents today complaining of left ear pain since this morning that she currently rates 2/10. She denies right ear pain, but reports bloody drainage from the right ear since this morning. She does wear hearing aids, but states that hearing from both ears is decreased. She has tried no [id number] interventions. Currently takes Plavix. History of RI, pacemaker, CABG, hypertension, diabetes. Denies any additional symptoms to include cough, sore throat, congestion, rhinorrhea, sore throat MD Complaint: ear pain, ear discharge and decreased hearing Related Data Home Medications Medication Instructions Recorded Confirmed acarbose [Precose] 25 mg PO DAILY 08/31/19 08/31/19 aspirin 81 mg PO DAILY 08/31/19 08/31/19 benzonatate 100 mg PO DAILY PRN 08/31/19 08/31/19 cholecalciferol (vitamin D3) 1,000 unit PO DAILY 08/31/19 08/31/19 enalapril maleate 20 mg PO BID 08/31/19 08/31/19 metformin 1,000 mg PO BID 08/31/19 08/31/19 pravastatin 40 mg PO DAILY 08/31/19 08/31/19 alendronate mg PO 08/22/20 carvedilol 08/22/20 clopidogrel 08/22/20 furosemide 08/22/20 metolazone 08/22/20 Allergies Allergy/AdvReac Type Severity Reaction Status Date / Time No Known Allergies Allergy Unknown Verified 08/28/19 15:52 Review of Systems Review of Systems: Narrative: CONSTITUTIONAL: Denies body aches, fever, chills, or sweats. EYES: Denies visual changes, redness, or discharge. ENT: Denies rhinorrhea, congestion, sore throat. + Left ear pain, right ear drainage CARDIOVASCULAR: Denies chest pain, palpitations, or edema. RESPIRATORY: Denies cough or dyspnea. GASTROINTESTINAL: Denies abdominal pain, nausea, vomiting, or diarrhea. GENITOURINARY: Denies dysuria or hematuria. SKIN: Denies rash, itching, or wounds. MUSCULOSKELETAL: Denies back pain, joint pain, or myalgia. NEUROLOGIC: Denies headache, numbness, tingling, or weakness. PSYCH: Denies depression or anxiety. [facility] Past Medical History Medical History (Updated 08/22/20 @ 15:00 by Oma Westbrook, RUTH, ) CAD (coronary artery disease) Diabetes Hx of myocardial infarction Pacemaker Surgical History Surgical History (Updated 08/22/20 @ 15:00 by Oma Westbrook, RUTH, ) Hx of CABG Exam Narrative: Exam Narrative: GENERAL: Well-appearing, well-nourished, and in no acute distress. HEAD: Normocephalic, atraumatic. EYES: EOMI. No redness or drainage. Conjunctivae normal. ENT: Mucous membranes pink and moist. Nares clear. No rhinorrhea. Left ear appears normal. Right ear canal with bright red blood and some dried old blood. Entire TM cannot be visualized and rupture cannot be visualized, but ear canal appears normal. Throat normal. Uvula midline. NECK: Normal AROM. Supple. No lymphadenopathy. CHEST: No respiratory distress. EXTREMITIES: Normal range of motion. No edema. SKIN: Warm, dry, no rash. Capillary refill normal. Normal skin turgor. NEURO: No focal deficits. Alert and oriented x3. Gait steady. PSYCH: Normal affect. No signs of depression or anxiety. Course Vital Signs Vital signs: Vital Signs Temperature 97.7 F 08/22/20 14:21 Pulse Rate 76 08/22/20 14:21 Respiratory Rate 18 08/22/20 14:21 Blood Pressure 147/61 H 08/22/20 14:21 Pulse Oximetry 97 08/22/20 14:21 Temperature 97.7 F 08/22/20 14:25 Pulse Rate 76 08/22/20 14:25 Respiratory Rate 18 08/22/20 14:25 Blood Pressure 147/61 H 08/22/20 14:25 Pulse Oximetry 97 08/22/20 14:25 Reviewed. Pt has been instructed to follow up with her PCP regarding her elevated blood pressure today. Medical Decision Making Differential Diagnosis Differential Diagnosis: Otitis media, otitis externa, ruptured TM, serous otitis, eustachian tube d
== END 2020-08-22 15:00 | disposition home or self-care (01) ==
PROVIDERS: Emergency Provider Nurse Practitioner
DX: H66.011 Acute suppurative otitis media with spontaneous rupture of ear drum, right ear (principal); I25.10 Atherosclerotic heart disease of native coronary artery without angina pectoris; Z95.5 Presence of coronary angioplasty implant and graft; E11.9 Type 2 diabetes mellitus without complications; I25.2 Old myocardial infarction; Z95.0 Presence of cardiac pacemaker
CPT/HCPCS: 99213; G0463

== ENCOUNTER 2021-02-20 14:33 | Outpatient (RCR) | payer MEDICARE, SELFPAY | END 2021-02-20 23:59 | disposition home or self-care (01) | LOC: ANHAUDIO 14:33 | PROVIDERS: PCP Internal Medicine Infectious Disease; Visit Provider Internal Medicine Infectious Disease | DX: Z46.1 Encounter for fitting and adjustment of hearing aid (principal) | CPT/HCPCS: 99199; V5014 ==

== ENCOUNTER 2021-03-02 13:13 | Emergency (ER) | payer MEDICARE, SELFPAY ==
--- NOTE | 2021-03-02 13:24 | ED.FEMALEGU ---
HPI - Female Genitourinary General Chief complaint: Urogenital-Female Stated complaint: UTI Time Seen by Provider: 03/02/21 14:00 Source: patient and RN notes reviewed Mode of arrival: ambulatory Limitations: no limitations History of Present Illness HPI Narrative: 85-year-old female presents concern for possible urinary tract infection. She reports several day history of dysuria, urgency, frequency, suprapubic pressure. She denies fever, chills, sweats, nausea, vomiting, abnormal vaginal discharge. MD elicited complaint: UTI Related Data Home Medications Medication Instructions Recorded Confirmed acarbose [Precose] 25 mg PO DAILY 08/31/19 08/31/19 aspirin 81 mg PO DAILY 08/31/19 08/31/19 benzonatate 100 mg PO DAILY PRN 08/31/19 08/31/19 cholecalciferol (vitamin D3) 1,000 unit PO DAILY 08/31/19 08/31/19 enalapril maleate 20 mg PO BID 08/31/19 08/31/19 metformin 1,000 mg PO BID 08/31/19 08/31/19 pravastatin 40 mg PO DAILY 08/31/19 08/31/19 alendronate mg PO 08/22/20 carvedilol 08/22/20 clopidogrel 08/22/20 furosemide 08/22/20 metolazone 08/22/20 Allergies Allergy/AdvReac Type Severity Reaction Status Date / Time No Known Allergies Allergy Unknown Verified 03/02/21 13:26 Review of Systems Review of Systems: Narrative: CONSTITUTIONAL: Denies malaise, chills, sweats, or fever. CARDIOVASCULAR: Denies chest pain, palpitations, or edema. RESPIRATORY: Denies cough or dyspnea. GASTROINTESTINAL: Denies abdominal pain, nausea, vomiting, diarrhea GENITOURINARY: Reports dysuria, frequency, urgency, suprapubic pressure. Denies hematuria or flank pain SKIN: Denies vaginal rash or itching. MUSCULOSKELETAL: Denies back pain or myalgia. NEUROLOGIC: Denies confusion or headache. All systems reviewed & are unremarkable except as noted in HPI and below PMFSH Past Medical History Medical History (Updated 03/02/21 @ 14:07 by Krystin Hall NP) CAD (coronary artery disease) Diabetes Hx of myocardial infarction Pacemaker Surgical History Surgical History (Updated 08/22/20 @ 15:00 by Oma Westbrook, RUTH, JALEESA) Hx of CABG Comments At time of signature, agree with nursing past medical, surgical, social and family history. There is no relevant family history pertinent to the presenting complaint Exam Narrative: Exam Narrative: GENERAL: Well-appearing, well-nourished, and in no acute distress. HEAD: Normocephalic. EYES: PERRLA, conjunctivae clear. NECK: Supple. No lymphadenopathy CHEST: Clear to auscultation. No respiratory distress. HEART: Regular rate and rhythm. ABDOMEN: Soft, nontender upon palpation, nondistended, normal active bowel sounds, no palpable or pulsatile masses, no guarding. No CVA tenderness SKIN: Warm, dry, no rash. NEURO: Alert and oriented x3. PSYCH: Normal mood and affect Course Course Emergency Course: Patient is aware of diagnosis, understands and agrees to treatment plan. Anticipatory guidance given. Patient agrees to follow-up as directed and is aware of reasons to seek care at the emergency department. Portions of this record may have been created with voice recognition software Vital Signs Vital signs: Vital Signs Temperature 98.9 F 03/02/21 13:26 Pulse Rate 75 03/02/21 13:26 Respiratory Rate 16 03/02/21 13:26 Blood Pressure 180/63 H 03/02/21 13:26 Pulse Oximetry 97 03/02/21 13:26 Temperature 98.9 F 03/02/21 13:26 Pulse Rate 75 03/02/21 13:26 Respiratory Rate 16 03/02/21 13:26 Blood Pressure 180/63 H 03/02/21 13:26 Pulse Oximetry 97 03/02/21 13:26 Reviewed. MDM - Female Genitourinary MDM Narrative Medical decision making narrative: Exam findings and UA show no acute concerns or changes; patient is non-toxic appearing and is in no distress. Patient is appropriate for outpatient treatment and follow-up. Differential Diagnosis Differential diagnosis: Likely urinary tract infection and cystitis Lab Data Attestation: I reviewed the destiney
[2021-03-02 13:26] VITALS: BP 180/63; PULSE 75; RESP 16; TEMP 37.2; O2SAT 97
== END 2021-03-02 14:10 | disposition home or self-care (01) ==
PROVIDERS: Emergency Provider Nurse Practitioner
DX: N39.0 Urinary tract infection, site not specified (principal); I25.10 Atherosclerotic heart disease of native coronary artery without angina pectoris; E11.9 Type 2 diabetes mellitus without complications; I25.2 Old myocardial infarction; Z95.0 Presence of cardiac pacemaker; Z95.1 Presence of aortocoronary bypass graft; Z79.82 Long term (current) use of aspirin
CPT/HCPCS: 81003; 87077; 87086; 87088; 87186; 99213; G0463

== ENCOUNTER 2021-06-28 13:02 | Emergency (ER) | payer MEDICARE, SELFPAY ==
--- NOTE | 2021-06-28 13:05 | ED.GENADULT ---
HPI - General Adult General Chief complaint: Ear Stated complaint: ear pain/dizziness Time Seen by Provider: 06/28/21 13:05 Source: patient Mode of arrival: ambulatory Limitations: language barrier (Granddaughter interpreting) History of Present Illness HPI narrative: 85-year-old female patient presents to the [facility] with complaints of right ear bleeding for the past couple of days. Granddaughter is with the patient and interpreting. Granddaughter states that she has been having issues with her ears being clogged and they gave her an eardrop however she states that the ear wax was too hard to the patient has been putting oil into the right ear. Granddaughter states that she does put her finger in there at times to itch it. No pain at this time. No fevers, body aches or chills. Related Data Home Medications Medication Instructions Recorded Confirmed acarbose [Precose] 25 mg PO DAILY 08/31/19 08/31/19 aspirin 81 mg PO DAILY 08/31/19 08/31/19 cholecalciferol (vitamin D3) 1,000 unit PO DAILY 08/31/19 08/31/19 enalapril maleate 20 mg PO BID 08/31/19 08/31/19 metformin 1,000 mg PO BID 08/31/19 08/31/19 pravastatin 40 mg PO DAILY 08/31/19 08/31/19 carvedilol 08/22/20 furosemide 08/22/20 metolazone 08/22/20 Allergies Allergy/AdvReac Type Severity Reaction Status Date / Time No Known Allergies Allergy Unknown Verified 06/28/21 13:29 Review of Systems Review of Systems: CONSTITUTIONAL: Denies fever, chills, or sweats. EYES: Denies visual changes, redness, or discharge. ENT: Denies rhinorrhea, congestion, sore throat, positive right otalgia. CARDIOVASCULAR: Denies chest pain, palpitations, or edema. RESPIRATORY: Denies cough or dyspnea. GASTROINTESTINAL: Denies abdominal pain, nausea, vomiting, or diarrhea. GENITOURINARY: Denies dysuria or hematuria. SKIN: Denies rash or itching. MUSCULOSKELETAL: Denies back pain, joint pain, or myalgia. NEUROLOGIC: Denies headache, numbness, or weakness. PSYCHIATRIC: Denies anxiety or depression. [facility] Past Medical History Medical History (Updated 06/28/21 @ 13:31 by RUTH Tavares) Anxiety CAD (coronary artery disease) Diabetes Hx of myocardial infarction Hypertension Pacemaker Septic shock UTI (urinary tract infection), bacterial Surgical History Surgical History Hx of CABG Comments At the time of my signature I agree with nursing past medical history, surgical, social, and family history. There is no relevant family history pertinent to the presenting complaint. Exam Narrative: GENERAL: Well-appearing, well-nourished, and in no acute distress. HEAD: Normocephalic, atraumatic. EYES: PERRLA and EOMI. ENT: Nares clear, no rhinorrhea or epistaxis. Mucous membranes moist. Patient does appear to have some impacted earwax noted to the right ear with a little bit of dry blood noted to the opening of the ear canal. No active bleeding at this time. NECK: Supple. No lymphadenopathy CHEST: Clear to auscultation. No respiratory distress. HEART: Regular rate and rhythm. No murmur heard. Normal peripheral pulses. ABDOMEN: Soft, nontender, nondistended, normal active bowel sounds. EXTREMITIES: Normal range of motion. No edema. SKIN: Warm, dry, no rash. NEURO: No focal deficits. Alert and oriented x3. Course Vital Signs Vital signs: Vital Signs Temperature 37.6 C 06/28/21 13:12 Pulse Rate 70 06/28/21 13:12 Respiratory Rate 16 06/28/21 13:12 Blood Pressure 141/52 H 06/28/21 13:12 Pulse Oximetry 98 06/28/21 13:12 Temperature 37.6 C 06/28/21 13:12 Pulse Rate 70 06/28/21 13:12 Respiratory Rate 16 06/28/21 13:12 Blood Pressure 141/52 H 06/28/21 13:12 Pulse Oximetry 98 06/28/21 13:12 Vital signs reviewed The patient has been informed that they may have pre-hypertension or Hypertension based on a BP reading in the department. I recommend that the patient call the primary care pr
[2021-06-28 13:12] VITALS: BP 141/52; PULSE 70; RESP 16; TEMP 37.6; O2SAT 98
== END 2021-06-28 13:38 | disposition home or self-care (01) ==
PROVIDERS: Emergency Provider Nurse Practitioner Family
DX: H60.501 Unspecified acute noninfective otitis externa, right ear (principal); H61.21 Impacted cerumen, right ear; I25.10 Atherosclerotic heart disease of native coronary artery without angina pectoris; E11.9 Type 2 diabetes mellitus without complications; I25.2 Old myocardial infarction; I10 Essential (primary) hypertension; Z95.0 Presence of cardiac pacemaker; Z95.1 Presence of aortocoronary bypass graft
CPT/HCPCS: 69210; 99213; G0463

== ENCOUNTER 2022-04-10 16:20 | Emergency (ER) | payer MEDICARE, SELFPAY ==
[2022-04-10 16:55] VITALS: BP 146/44; PULSE 93; RESP 18; TEMP 36.6; O2SAT 99
--- NOTE | 2022-04-10 17:09 | ED.FEMALEGU ---
HPI - Female Genitourinary General Chief complaint: Urogenital-Female Stated complaint: uti Time Seen by Provider: 04/10/22 17:09 Source: patient Mode of arrival: ambulatory Limitations: language barrier History of Present Illness HPI Narrative: 86-year-old female presents with complaint of urinary frequency, urgency, dysuria since yesterday. Also reports some abdominal bloating. Denies fever chills. No nausea vomiting. Denies back pain. Last UTI was 4 months ago. Was on antibiotic for 1 week but does not remember name. Patient is Syrian-speaking, from [place] and here with granddaughter. All systems reviewed and negative except as noted above. Related Data Home Medications Medication Instructions Recorded Confirmed acarbose 25 mg tablet (Precose) 25 mg PO DAILY 08/31/19 06/28/21 aspirin 81 mg chewable tablet 81 mg PO DAILY 08/31/19 06/28/21 cholecalciferol (vitamin D3) 25 1,000 unit PO DAILY 08/31/19 08/31/19 mcg (1,000 unit) tablet enalapril maleate 20 mg tablet 20 mg PO BID 08/31/19 08/31/19 metformin 1,000 mg tablet 1,000 mg PO BID 08/31/19 08/31/19 pravastatin 40 mg tablet 40 mg PO DAILY 08/31/19 08/31/19 carvedilol 3.125 mg tablet 08/22/20 furosemide 20 mg tablet 08/22/20 clopidogrel 75 mg tablet 75 mg PO DAILY 04/10/22 04/10/22 Allergies Allergy/AdvReac Type Severity Reaction Status Date / Time No Known Allergies Allergy Unknown Verified 06/28/21 13:29 Review of Systems Review of Systems: CONSTITUTIONAL: Denies fever, chills, or sweats. EYES: Denies visual changes, redness, or discharge. ENT: Denies rhinorrhea, congestion, sore throat, or otalgia. CARDIOVASCULAR: Denies chest pain, palpitations, or edema. RESPIRATORY: Denies cough or dyspnea. GASTROINTESTINAL: Denies abdominal pain, nausea, vomiting, or diarrhea. GENITOURINARY: Reports dysuria, frequency, urgency. Denies hematuria. SKIN: Denies rash or itching. MUSCULOSKELETAL: Denies back pain, joint pain, or myalgia. NEUROLOGIC: Denies headache, numbness, or weakness. PSYCHIATRIC: Denies anxiety or depression. All other systems reviewed are negative, except as documented in HPI. [facility] Past Medical History Medical History (Updated 04/10/22 @ 17:17 by Germaine Mcclendon NP) Anxiety CAD (coronary artery disease) Diabetes Hx of myocardial infarction Hypertension Pacemaker Septic shock UTI (urinary tract infection), bacterial Surgical History Surgical History Hx of CABG Social History Social History Gender identity (if verbalized by the patient): Female Comments At time of signature, agree with nursing past medical, surgical, social and family history. There is no relevant family history pertinent to the presenting complaint. Exam Narrative: GENERAL: This is a well-nourished, well-developed patient, in no apparent distress. HEAD: normocephalic, atraumatic. EYES: PERRL. Sclera clear/white. Vision is grossly intact. EARS: External ears normal NOSE: External nose normal NECK: Neck supple, non-tender without lymphadenopathy, masses or thyromegaly. CARDIOVASCULAR: Regular rate and rhythm without murmurs, gallops, or rubs. RESPIRATORY: Clear to auscultation. Breath sounds equal bilaterally. No wheezes, rales, or rhonchi. SKIN: warm, Dry, intact with no suspicious lesions or rash, good texture and turgor. NEURO: awake, alert, and oriented to person, place and time. There were no obvious focal neurologic abnormalities. EXTREMITIES: No joint tenderness, effusion, or edema noted BACK: No CVA tenderness. Course Course Level of Care: Express Care Visit Vital Signs Vital signs: Vital Signs Temperature 36.6 C 04/10/22 16:55 Pulse Rate 93 04/10/22 16:55 Respiratory Rate 18 04/10/22 16:55 Blood Pressure 146/44 H 04/10/22 16:55 Pulse Oximetry 99 04/10/22 16:55 Oxygen Delivery Room Air 04/10/22 16:55
== END 2022-04-10 17:26 | disposition home or self-care (01) ==
PROVIDERS: Emergency Provider Nurse Practitioner Family
DX: N39.0 Urinary tract infection, site not specified (principal); I10 Essential (primary) hypertension; I25.10 Atherosclerotic heart disease of native coronary artery without angina pectoris; E11.9 Type 2 diabetes mellitus without complications; I25.2 Old myocardial infarction; Z95.0 Presence of cardiac pacemaker; Z95.1 Presence of aortocoronary bypass graft; Z79.84 Long term (current) use of oral hypoglycemic drugs; Z79.82 Long term (current) use of aspirin
CPT/HCPCS: 81003; 87077; 87086; 87147; 87181; 87186; 99213; G0463

== ENCOUNTER 2024-04-30 15:55 | Emergency (ER) | payer MEDICARE, SELFPAY ==
--- NOTE | 2024-04-30 15:57 | ED.EAR ---
HPI - Ear Problem General Chief complaint: Ear Stated complaint: both ears decreased hearing,slight pain Time Seen by Provider: 04/30/24 15:56 Source: patient Mode of arrival: ambulatory Limitations: no limitations History of Present Illness HPI Narrative: Sp is a 88-year-old female patient presenting to the clinic today with complaints of decreased hearing in both ears. She reports she does wear hearing aids. Feels as though her ears are clogged up. Denies any fever, chills, body aches. Does report some cough and congestion has been going on for some time. Related Data Home Medications Medication Instructions Recorded Confirmed acarbose 25 mg tablet (Precose) 25 mg PO DAILY 08/31/19 04/30/24 aspirin 81 mg chewable tablet 81 mg PO DAILY 08/31/19 04/30/24 cholecalciferol (vitamin D3) 25 1,000 unit PO DAILY 08/31/19 04/30/24 mcg (1,000 unit) tablet metformin 1,000 mg tablet 1,000 mg PO BID 08/31/19 04/30/24 pravastatin 40 mg tablet 40 mg PO DAILY 08/31/19 04/30/24 carvedilol 3.125 mg tablet 3.125 mg PO DAILY 08/22/20 04/30/24 furosemide 20 mg tablet 20 mg PO DAILY 08/22/20 04/30/24 clopidogrel 75 mg tablet 75 mg PO DAILY 04/10/22 04/30/24 dapagliflozin propanediol 5 mg 5 mg PO DAILY 04/30/24 04/30/24 tablet (Farxiga) enalapril maleate 5 mg tablet 5 mg PO DAILY 04/30/24 04/30/24 levothyroxine 25 mcg tablet 25 mcg PO DAILY 04/30/24 04/30/24 metolazone 5 mg tablet 5 mg PO DAILY 04/30/24 04/30/24 oxyquinoline 0.025 %-sodium lauryl See Rx Instructions .Route .COMPLEX 04/30/24 04/30/24 sulfate 0.01 % vaginal gel (Trimo-Zimmer Jelly) Allergies Allergy/AdvReac Type Severity Reaction Status Date / Time No Known Allergies Allergy Unknown Verified 04/30/24 16:00 Review of Systems Review of Systems: Pertinent positives per HPI. Patient denies any fever, chills, rash, headache, visual changes, dizziness, sore throat, shortness of breath, chest pain, palpitations, nausea, vomiting, diarrhea, constipation, abdominal pain, or any urinary issues. [facility] Past Medical History Medical History Anxiety CAD (coronary artery disease) Diabetes Hx of myocardial infarction Hypertension Pacemaker Septic shock UTI (urinary tract infection), bacterial Surgical History Surgical History Hx of CABG Social History Social History Gender identity (if verbalized by the patient): Female Comments At the time of my signature, I reviewed and agree with the nursing past medical, surgical, social, and family history. There is no relevant family history pertinent to the patient complaint. Exam Narrative: General: Well-developed, well nourished, in no apparent distress Head: Normocephalic, atraumatic Eyes: Pupils equally round and reactive to light bilaterally, EOM intact, sclera and conjunctive clear, no discharge, lids normal Ears: TMs intact and clear, ear canals clear, no drainage, grossly hearing normal. Nose: Nares patent, no discharge, no inflammation, no sinus tenderness. Mouth: Oropharynx without lesions or masses, good dentition, MMM. Neck: Supple, trachea midline, no enlargement of anterior or posterior cervical nodes, no thyroid masses or goiter palpable. Cardio: Regular rate and rhythm, s1 and s2 normal, no murmur appreciated. Resp: Clear to auscultation bilaterally anteriorly and posteriorly, no rhonchi, rales, wheezing or rubs Course Course Emergency Course: Portions of this record may have been created with voice recognition software. Level of Care: Express Care Visit Vital Signs Vital signs: Vital signs reviewed Medical Decision Making MDM Narrative Medical decision making narrative: At the time of visit patient is resting comfortably on the exam table. Patient appears to be nontoxic. Plan: I suspect patient has
[2024-04-30 16:08] VITALS: BP 150/108; PULSE 86; RESP 16; TEMP 36.9; O2SAT 98
== END 2024-04-30 16:23 | disposition home or self-care (01) ==
PROVIDERS: Emergency Provider Nurse Practitioner Family
DX: H91.93 Unspecified hearing loss, bilateral (principal); I25.10 Atherosclerotic heart disease of native coronary artery without angina pectoris; E11.9 Type 2 diabetes mellitus without complications; Z79.84 Long term (current) use of oral hypoglycemic drugs; I25.2 Old myocardial infarction; I10 Essential (primary) hypertension; Z95.0 Presence of cardiac pacemaker; Z95.1 Presence of aortocoronary bypass graft; Z79.82 Long term (current) use of aspirin
CPT/HCPCS: 99213; G0463

== ENCOUNTER 2024-09-29 11:10 | Emergency (ER) | payer MEDICARE, SELFPAY ==
[2024-09-29 12:20] VITALS: BP 179/71; PULSE 84; RESP 16; TEMP 36.8; O2SAT 99
[2024-09-29 12:22] VITALS: BP 179/71; PULSE 84; RESP 16; TEMP 36.8; O2SAT 99
--- NOTE | 2024-09-29 13:16 | ED_ITS ---
HPI - General Adult General Chief complaint: Ear Stated complaint: Earache Time Seen by Provider: 09/29/24 13:16 Source: patient, RN notes reviewed and old records reviewed Mode of arrival: ambulatory Limitations: no limitations History of Present Illness HPI narrative: Patient arrives accompanied by her grandmother. Patient wears hearing aids. She presents today because it has been 6 months since she was here and she is concerned that she needs her ears cleaned. She does report some discomfort to bilateral ears. She denies any injury or trauma. No fever Related Data Home Medications Medication Instructions Recorded Confirmed acarbose 25 mg tablet (Precose) 25 mg PO DAILY 08/31/19 04/30/24 aspirin 81 mg chewable tablet 81 mg PO DAILY 08/31/19 04/30/24 cholecalciferol (vitamin D3) 25 1,000 unit PO DAILY 08/31/19 04/30/24 mcg (1,000 unit) tablet metformin 1,000 mg tablet 1,000 mg PO BID 08/31/19 04/30/24 pravastatin 40 mg tablet 40 mg PO DAILY 08/31/19 04/30/24 carvedilol 3.125 mg tablet 3.125 mg PO DAILY 08/22/20 04/30/24 furosemide 20 mg tablet 20 mg PO DAILY 08/22/20 04/30/24 clopidogrel 75 mg tablet 75 mg PO DAILY 04/10/22 04/30/24 dapagliflozin propanediol 5 mg 5 mg PO DAILY 04/30/24 04/30/24 tablet (Farxiga) enalapril maleate 5 mg tablet 5 mg PO DAILY 04/30/24 04/30/24 levothyroxine 25 mcg tablet 25 mcg PO DAILY 04/30/24 04/30/24 metolazone 5 mg tablet 5 mg PO DAILY 04/30/24 04/30/24 oxyquinoline 0.025 %-sodium lauryl See Rx Instructions .Route .COMPLEX 04/30/24 04/30/24 sulfate 0.01 % vaginal gel (Trimo-Zimmer Jelly) Allergies Allergy/AdvReac Type Severity Reaction Status Date / Time No Known Allergies Allergy Unknown Verified 09/29/24 12:21 Review of Systems Review of Systems: All systems reviewed & are unremarkable except as noted in HPI and below Constitutional: Constitutional: Reports no additional constitutional complaints ENT: Reports system reviewed and no additional complaints, except as documented and Reports otalgia Cardiovascular: Cardiovascular: Reports no additional cardiovascular complaints Respiratory: Respiratory: Reports no additional respiratory complaints Gastrointestinal: Gastrointestinal: Reports no additional gastrointestinal complaints [facility] Past Medical History Medical History Anxiety CAD (coronary artery disease) Diabetes Hx of myocardial infarction Hypertension Pacemaker Septic shock UTI (urinary tract infection), bacterial Surgical History Surgical History Hx of CABG Social History Social History Gender identity (if verbalized by the patient): Female Comments At the time of my signature, I reviewed and agree with the nursing past medical, surgical, social, and family history. There is no relevant family history pertinent to the patient complaint. Exam Const: General: cooperative, no acute distress, alert and awake Orientation/consciousness: oriented to person, oriented to place and oriented to time HENMT: Head: normal to inspection Ears: TM's normal bilaterally and EAC's normal Resp: Effort & Inspection: normal respiratory effort and able to speak in complete sentences Auscultation: clear to auscultation bilaterally, no crackles, no rales, no rhonchi and no wheezes Cardio: Palpation: normal PMI Rate: regular rate Rhythm: regular rhythm Heart sounds: S1 normal heart sound present and S2 normal heart sound present Neuro: General: oriented to person, oriented to place and oriented to time Cranial nerves: Yes CN's II-XII intact bilaterally Psych: Appearance: grossly normal Thought process: Normal thought process present Insight: Good insight present (Psych) Judgement: Good judgement present (Psych) Course Course Level of Care: Express Care Visit Vital Signs Vital signs: Vital Signs Temperature 98.3 F 09/29/24 12:20 Pulse Rate 84 09/29/24 12:20 Respiratory Rate 16 09/29/24 12:20 Blood Pressure 179/71 H 09/29/24 12:20 Pulse Oximetry 99 09/29/24 12:20 Oxygen Delivery Room Air 09/29/24 12:20 Temperature 98.3 F 09/29/24 12:22 Pulse Rate 84 09/29/24 12:22 Respiratory Rate 16 09/29/24 12:22 Blood Pressure 179/71 H 09/29/24 12:22 Pulse Oximetry 99 09/29/24 12:22 Oxygen Delivery Room Air 09/29/24 12:22 Reviewed Medical Decision Making MDM Narrative Medical decision making narrative: Normal physical exam. Elevated blood pressure noted. Emergency department precautions discussed Discharge instructions reviewed with patient, as well as provided in writing per nursing staff. The instructions also include specific and strict return/GO TO THE ER as well as f/u information. All questions have been answered, and the patient deny any further questions with discharge and discharge plan. Some parts of this dictation were generated by voice recognition software and may contain typographical and/or grammatical inaccuracies. Differential Diagnosis Differential Diagnosis: Cerumen impaction, otitis media, otitis externa Medical Records Medical records reviewed: Yes I reviewed the external patient's medical records. Vital Signs Vital Signs: Vital Signs Temperature 98.3 F 09/29/24 12:20 Pulse Rate 84 09/29/24 12:20 Respiratory Rate 16 09/29/24 12:20 Blood Pressure 179/71 H 09/29/24 12:20 Pulse Oximetry 99 09/29/24 12:20 Oxygen Delivery Room Air 09/29/24 12:20 Temperature 98.3 F 09/29/24 12:22 Pulse Rate 84 09/29/24 12:22 Respiratory Rate 16 09/29/24 12:22 Blood Pressure 179/71 H 09/29/24 12:22 Pulse Oximetry 99 09/29/24 12:22 Oxygen Delivery Room Air 09/29/24 12:22 reviewed Lab Data Lab results reviewed: Yes I reviewed the patient's lab results. Lab results narrative: reviewed Discharge Plan Discharge Clinical Impression: Elevated blood pressure reading Acute otalgia Qualifiers: Laterality: bilateral Qualified Code(s): H92.03 - Otalgia, bilateral Patient Disposition: Home, Self-Care Condition: Stable Instructions: Antibiotic Form, Earache (ED) Patient Language: Trinidadian Prescriptions: No Action carvedilol 3.125 mg tablet 3.125 mg PO DAILY furosemide 20 mg tablet 20 mg PO DAILY clopidogrel 75 mg Tablet 75 mg PO DAILY phenazopyridine [Pyridium] 200 mg tablet 200 mg PO TID PRN (Reason: pain) 3 Days Qty: 10 0RF ciprofloxacin HCl [Cipro] 500 mg tablet 500 mg PO BID 7 Days Qty: 14 0RF enalapril maleate 5 mg tablet 5 mg PO DAILY metolazone 5 mg tablet 5 mg PO DAILY levothyroxine 25 mcg tablet 25 mcg PO DAILY Trimo-Zimmer Jelly 0.025-0.01 % gel See Rx Instructions .ROUTE .COMPLEX Rx Instructions: Rx dapagliflozin propanediol [Farxiga] 5 mg tablet 5 mg PO DAILY fluticasone propionate 50 mcg/actuation spray,suspension 2 spray intranasal DAILY Qty: 16 0RF Rx Instructions: administer into each nostril acarbose [Precose] 25 mg Tablet 25 mg PO DAILY aspirin 81 mg Tablet,Chewable 81 mg PO DAILY pravastatin 40 mg Tablet 40 mg PO DAILY metformin 1,000 mg Tablet 1,000 mg PO BID cholecalciferol (vitamin D3) 1,000 unit (25 mcg) Tablet 1,000 unit PO DAILY Follow-up/Referrals: PHYSICIAN NOT ON STAFF,NONSTAFF [Primary Care Provider] - Time of Disposition: 13:25
== END 2024-09-29 13:28 | disposition home or self-care (01) ==
PROVIDERS: Emergency Provider Nurse Practitioner Family
DX: I10 Essential (primary) hypertension (principal); H92.03 Otalgia, bilateral; I25.10 Atherosclerotic heart disease of native coronary artery without angina pectoris; E11.9 Type 2 diabetes mellitus without complications; Z79.84 Long term (current) use of oral hypoglycemic drugs; I25.2 Old myocardial infarction; Z95.5 Presence of coronary angioplasty implant and graft; Z95.1 Presence of aortocoronary bypass graft; Z79.82 Long term (current) use of aspirin
CPT/HCPCS: 99211; G0463